=== PATIENT | female | born 2000 | race Caucasian/White ===

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

== ENCOUNTER 2019-10-18 09:00 | Outpatient (RCR) | payer OTHER, SELFPAY ==
[2018-10-25 07:34] VITALS: BMI 32.7
--- NOTE | 2019-10-18 09:03 | BH.SGPN.GN ---
Behaviors/Verbalizations/Mental Status: [] Client alert and oriented, casually dressed. Eye contact good. Motor activity appropriate. Speech within normal limits. Affect congruent, mood depressed, anxious. Thoughts linear, logical, no signs of hallucinations or delusions. Reviewed client?s symptom tracker, no risk for suicidal ideation, plan, or intent as of 10/18/19. Client Response/Progress/Benefit: [] Client first day in IOP treatment, remained attentive and willing to share with the group. Reports feeling sad and anxious today as she has been struggling with increased anxiety for the past several months. Additionally noted that in the last few months she has also lost her mother and been more isolated due to COVID-19 pandemic. Appeared to benefit from other participants normalizing these feelings for client and providing encouragement. Client noted that she would like to find ways to better manage her emotions, cope with ongoing grief, and improving ability to manage anxiety. Expressed feeling nervous but excited to begin IOP treatment and is proud of herself for taking the initiative to seek help. Will continue IOP tx to increase insight, improve mood stability, and promote healthy mental health sx management. Narrative Note: []
--- NOTE | 2019-10-18 10:16 | BH.SGPN.GN ---
Behaviors/Verbalizations/Mental Status: [] Client alert and orient. Appearance neat, casual and appropriately groomed. Speech an appropriate rate and tone. Motor activity WNL. Mood anxious and dysthymic, affect congruent. No evidence of delusion or hallucinations. Client Response/Progress/Benefit: [] Pt first day in IOP tx. She was receptive to session, participating throughout. Provided input as the group brainstormed the positive and negative aspects of stress on physical and mental health. Group worked together to define stress and pt noted that to her stress can be ?either motivating or debilitating?. Group did well to identify that the benefits of stress include: motivates us, heightened senses/focus, increased productivity, and keeps us safe. Identified personal impacts of too much stress as: decreased performance, irritability, lashing out, and isolation/avoidance. Client identified her own current stressors as finances, friendships, family, work, loneliness, her mental health, physical health, grief, fear/anxiety, and worries about a future career. Client reports that the level of her stress jar is ?overflowing? but that she is looking forward to improving her ability to cope. Recommended to continue IOP tx to improve healthy coping skill application, reduce mental health sx, and prevent decompensation. Narrative Note: []
--- NOTE | 2019-10-18 11:14 | BH.SGPN.GN ---
Behaviors/Verbalizations/Mental Status: []Client alert and oriented, neatly dressed and groomed. Eye contact good. Motor activity appropriate. Speech within normal limits. Affect unable to gather due to wearing a mask for COVID-19 protocol, mood anxious. Thoughts linear, logical, no signs of hallucinations or delusions. Client Response/Progress/Benefit: []Client engaged participant in session as evidenced by client listening attentively to others and providing input during session. Client reported when she does not manage her stress well client cries, has panic attacks, isolates, avoids, and takes it out on others. Client contributing during discussion about the 4 A's of managing stress. Client able to give different strategies for all the A's and connect it back to her life. Client wants to work on managing her stressor of working on establishing her career plan. Client reported she wants to reduce her stressor by setting small goals to help her create a more realistic plan. Client also wants to ?sort out my thoughts? by taking time to write out what she wants and steps to take. Client seemed to benefit from increased awareness of the impact of stress on mental health and increasing repertoire of stress management strategies. Will continue IOP tx to prevent decompensation, increase self-awareness, and improve daily functioning. Narrative Note: []
--- NOTE | 2019-10-18 11:23 | BH.COMM ---
Communication Note - Communication with Client Communication Note: Met with pt to complete intial paperwork. No significant chenges since pre-admission screening. Completed [place] [facility]icide Screening. Low risk. Passive suicidal thoughts and survivial ambivalence on sporadic basis. Protective factors. Future-oriented.
--- NOTE | 2019-10-19 08:54 | BH.NA ---
Physical Data - Vital Signs Pulse Rate: 64 Blood Pressure: 106/62 - Height/Weight Height: 1.55 m - stated Weight:: 83.915 kg - stated Weight in Pounds: 185.0 lbs Nutritional History - Appetite Nutritional Instructions:: If client shows signs of a swallowing problem, weight change of 10 pounds or more in the last month, or is on a diabetic diet, the physician will review and request a dietitian consult, as appropriate. All unintentional weight loss will be referred to the physician for decision on need for dietitian consult. Describe your appetite:: Fair - Client states that her appetite varies, states she stress eats at times and other times like current nothing sounds good lately. Functional Assessment - Sleep Pattern Describe any problems with sleeping: Client states that she has struggled with insomnia and it has been bad over the past 1.5years. States the insomnia is not every day but describes an average of 1 hour of sleep on those nights and on nights that she is really fatigued will get approximately 7 hours of broken sleep. - Activities Motor Activity:: Functional Sensory/Communication Assess - Vision Problems Do you have any vision problems?: None - Hearing Problems Do you have any hearing problems?: Adequate - Communication Problems Do you have difficulty understanding what people are saying?: No Do you have trouble putting your thoughts into words or expressing what you want to say?: Yes - Client states has racing thoughts and pressured speech. Medical Problems/History - Neurological Conditions Neurological: Seizures Comments:: Client states that she had one siezure two years ago and off medication x1-2years. - Gastrointestinal Conditions Gastrointestinal: Other (See comments) - Client states she has lymphocytic colitis - Family History Family History: Family History (Last Reviewed 10/25/18 @ 07:12 by Jaylin Kilgore) Other Diabetes Seizures Comments:: Client states that she has a family history of Bipolar disorder with her cousins. - Additional History Additional comments:: Client states she has a h/o PTSD, Depression, Anxiety, Panic disorder Surgical History - Surgical History Have you had any surgeries? If so, list type and date:: Yes - [place] teeth Substance Abuse - Substance Abuse Please describe substance abuse in the last 30 days:: Client denies past or current alcohol use, substance use, or tobacco use. Client states that she consumes caffiene a few times per week consisting of pop, coffee, and tea. Mental Status Summary - Mental Status Significant Findings/Observations on Appearance and Mood:: Client is alert and oriented x4. Client is casually groomed. Client cooperative during the assessment, makes fair eye contact during conversation. Client's speech with normal rate and volume, coherent and spontaneous. Client appears mildly depressed and moderately anxious during assessment. Client makes logical associations, normal processing. Client denies delusions and hallucinations, none evident. Client appears to have good insight and judgement. Suicide Assessment - Suicidal Ideation Are you currently or have you been suicidal in the past?: Yes - Past in 2015- with pills but interupted. Denies current SI/HI Suicidal Intentional Rating Scale (SIRS): Suicidal thoughts (past) - Past SI in 2015, denies current SI/HI. Physician Notification: If Active suicidal thoughts/Will not contract for safety is checked, contact physician and document in the Physician Notification section below. Past Psychiatric History - MH Treatment Hx Age of first mental health symptoms: Client states officially diagnosed with mental health at 13yo. Describe (age, circumstance, etc) any past hospitalizations: Client denies past mental health hospitalizations. Current providers for mental health treatment (counselor, psychiatrist, case finishing machine adjuster, etc.): Client denies current psychiatrist or therapist. Client states she tried seeing a psychiatrist in the past about one year ago and seen a therapist a year ago but not for very long. Fall Risk Assessment - Physical Status Physical Status: No problems - Impairments Impairments: None - Elimination Elimination: Continent AND independent - Gait or Balance Gait or Balance: Walks independently - Hx of Falls History of falls in the past 6 months: No known history - Medications/Substances Medications/substances used within the past 24 hours or ordered to administer: None of the medications/substances list above RN Summary of Impressions - Impressions Recommendations: Include psychiatric and medical issues, treatment planning recommendations, and discharge planning needs. Impressions: Psychiatric Issues: Bipolar 2 disorder, most recent episode hypomanic or mixed; generalized anxiety disorder; history of PTSD - Level of Care How do the client's current symptoms and functional deficits support need for this level of care?: Client details onset of current episode, stating her symptoms have been getting worse over the pat couple years. Client states that it has worsened over the past couple months and worse with traumatic events. Client states that her mother a couple months ago from terminal cancer. 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 Client states that she is frustrated from her mental health issues and that her friends are noticing her going from a depressed state to a up for anything state. Client states before her mother passed that her mother said she was talking loud and rapid. Client states that she feels distracted, having a hard time concentrating, anxious, panic attacks 2-3 times/week, racing thoughts, pressured speech, and at times depressed. IOP will promote gains and prevent further decompensation while providing social support and skills training.
--- NOTE | 2019-10-19 09:06 | BH.SGPN.GN ---
Behaviors/Verbalizations/Mental Status: [] Client alert and oriented, casual dress. Eye contact good. Motor activity appropriate. Speech within normal limits. Affect unable to gather due to client wearing a mask for COVID-19 protocol, mood dysthymic, agitated. Thoughts linear, logical, no signs of hallucinations or delusions. Reviewed client?s symptom tracker, no signs of suicidal ideation, plan, or intent as of today. Client Response/Progress/Benefit: [] Client responded well to session, providing feedback to peers and engaged in discussion. Client reports feeling agitated and frustrated today as she has been struggling to set boundaries with her co-workers as she feels they have been overbearing since her mom a few months ago. Client noted appreciating their concerns but feels overwhelmed when people are constantly checking-in with her. She did well to accept support from the group and noted use of self-talk and taking breaks as needed to better manage her emotions. Client did well to identify current mental health positives which include making plans to meet up with a friend and create inspirational signs she can hang around her room, as well as taking the stressor regarding her coworkers and being able to reframe it as a positive. She shared that reframing has been a very tool in challenging her perspective. Appeared to benefit from reflecting on her application of coping skills and ability to challenge negative thoughts. Will continue IOP tx to promote more consist mood stability, improve daily functioning, and reduce intensity of symptoms. Narrative Note: []
--- NOTE | 2019-10-19 09:09 | BH.SGPN.GN ---
Behaviors/Verbalizations/Mental Status: []Client alert and oriented, casual appearance. Eye contact fair. Motor activity appropriate. Speech within normal limits. Affect constricted, mood dysthymic. Thoughts linear, logical, no signs of hallucinations or delusions. Client Response/Progress/Benefit: []Pt responded well to session AEB pt openly sharing thoughts and feelings and listening attentively to others. Pt reported she is struggling because not getting sufficient amount of sleep due to insomnia. Pt stated at night she will have dumb irrational fears which make her mind race and has difficulty falling asleep. Pt reported she was able to talk myself down last night and get a few hours of sleep. Pt reported a mental health positive is starting IOP because gives her hope. Pt stated her current stressor is money because she struggles with buying things to help her feel better. Pt seemed to benefit from support from peers. Pt to continue IOP to increase health coping, challenge negative thoughts and prevent decompensation. Narrative Note: []
[2019-10-19 09:46] VITALS: BP 106/62; PULSE 64
--- NOTE | 2019-10-19 11:18 | BH.SGPN.GN ---
Behaviors/Verbalizations/Mental Status: [] Eye contact good. Motor activity is appropriate. Appearance is casual. Speech is Appropriate. Mood is anxious and depressed. Affect is congruent. Thoughts are linear and logical. No evidence of psychosis. Client Response/Progress/Benefit: [] Pt receptive of session, actively engaged in activity and group discussion. Worked with group to process the activity and connect negative forces in the task with those experienced in their own lives. Pt identified personal negative forces impacting mental health progress to include: unrealistic expectations, negative self-talk, fear of failing, lack of balance, and unregulated emotions. Group then worked together to identify common positive forces in activity and life which help us grow. Pt personal positive forces included: healthy supports, a desire to improve balance and focus more on positives, and willingness to put forth the effort. Pt was attentive during psychoeducation on the importance of utilizing many aspects of positive forces and benefited from group with increased insight on the impact of negative and positive forces on mental wellness. Identified wanting to improve positive self-talk as a stronger positive force in her life. Progress noted in self-report of improved ability to recognize unhealthy skills she would like to reduce and healthier alternatives. Pt recommended continued IOP tx to maintain stability, improve symptom management, and continue to work on healthy coping skill application. Narrative Note: []
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
--- NOTE | 2019-10-19 13:00 | BH.DR.ITP ---
Initial Treatment Plan - Patient Information Visit Information: ADMISSION DATE: EXPECTED LOS: 4-6 weeks - Problems/Symptoms Problem #1:: moods of depression, irritability and hypomania Symptom:: Sadness, restlessness, biological disruption of sleep, passive thoughts of , decreased concentration, hopelessness, worthlessness, guilt Problem #2:: Anxiety Symptom:: Rumination, worry, panic attacks
--- NOTE | 2019-10-20 10:17 | BH.SGPN.GN ---
Behaviors/Verbalizations/Mental Status: []Eye contact is good. Motor activity is appropriate. Appearance is disheveled. Speech is Appropriate. Mood is anxious, depressed. Affect is unable to gather due to wearing a mask for COIVD-19 protocol. Thoughts are linear and logical. No evidence of psychosis. Client Response/Progress/Benefit: []Client was an active participant in group discussion and activity, providing input throughout. Client worked with peers on defining what goals are. Client reported ?if you only focus on the end goal you focus on perfection, not progress.? Brainstormed with the group the benefits of goal setting which included: increased motivation, sense of accomplishment, increased confidence, growth, and purpose. Client helped group discussed the barriers that keep people from either setting goals are following through with goals. Client identified not feeling deserving of setting goals as a barrier to setting goals. Able to provide feedback during psychoeducation on SMART goals. Engaged in activity and did well to provide ideas and listen to peers. Client appeared to benefit from learning the mental health benefits of setting goals that are SMART. Will continue IOP tx to promote mood stability, prevent decompensation, and increase healthy coping skills. Narrative Note: []
--- NOTE | 2019-10-20 15:31 | BH.MDN_ITS ---
Multi-Disciplinary Note - Note 30-min Individual Time Started:: 09:45 Date: 10/20/19 Purpose of session/treatment goals addressed:: The purpose of this session was to gather information on client's current stressors, symptoms, and treatment goals. Another goal was to build rapport and provide psychoeducation. Eye Contact:: Good Motor Activity:: Appropriate Appearance:: Disheveled Speech:: Appropriate Mood:: Anxious Affect:: Congruent Thoughts:: Racing, No evidence of hallucinations/delusions noted Staff Interventions:: Therapist used active listening and open-ended questions to explore client's current stressors, symptoms, history, and treatment goals. Therapist used strengths perspective to build rapport and provide emotional support. Therapist provided psychoeducation on anxiety, bipolar, and maintainance cycles. Therapist gave client encouragement and normalized her anxiety on her first week of IOP. Client Response:: Client responded well to session, open to meeting with therapist. Client reported she has been enjoying IOP so far and looks forward to continuing her treatment. Client stated she wants to work on managing her emotions beyond medications. Client was diagnosed with bipolar disorder by [facility] psychiatrist which client reported was the first time she had been diagnosed with this. Client shared it is a relief for her because I knew something wasn't right, I just didn't know what. Client stated now that she knows what she has, client can go back and identify past symptoms. Client shared her mental health and inability to manage her mood has hurt client's friendships and family in the past. Client stated, they want to know why I'm being crazy and I didn't know. Client receptive to psychoeducation on bipolar disorder, anxiety, and maintenance cycles. Client hopes to learn more about her warning signs, triggers, and baseline emotions. Client reported she would also like to learn how to cope with her history of trauma. Client stated it is hard to tell if her erratic moods are from her trauma or bipolar disorder. Client appears motivated and willing to learn. Risks/Concerns:: Client denies any suicidal ideations, plan, or intent as of 10/21/19. Future oriented and reporting hope for treatment. Progress Toward Goals/Plan:: Client's first week of IOP, is doing well to connect with peers and engage in group sessions. Client identified her tx goals to be: reduce anxiety, get better sleep, control her emotions better, lessen the intensity of her symptoms, learn more about bipolar disorder, and cope with trauma triggers. Client currently endorses erratic mood swings, anxiety, lack of sleep, panic attacks, and increased irritability. Client reports history of brandy symptoms including grandiose ideations, racing thoughts, and lack of sleep but still having energy. Will continue IOP tx to prevent decompensation, reduce mood dysregulation, and learn healthy coping skills. Time Stopped:: 10:14
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
--- NOTE | 2019-10-20 15:50 | BH.MTP ---
[facility] - Patient Information Program Physician:: Dr. Kaitlin Ferrer Primary Therapist:: Tess Cuevas - Psychiatric Diagnoses Psychiatric Diagnoses:: Bipolar 2 disorder, most recent episode hypomanic or mixed; generalized anxiety disorder; history of PTSD Diagnosis Code(s):: F 31.81 - Estimated LOS Estimated LOS (in weeks):: 6 Problem/Goal #1 - Problem/Goal #1 Stated Goal:: Client will increase mood stability, reduce depression, and reduce isolative behaviors due to Bipolar disorder through the Intensive Outpatient Program. Description of Barriers: Client reports significant traumas throughout her life that continue to impact client. Client stated in the past she has minimized her emotions and symptoms, which later led to more problems and poorer functioning. Client's mother this year and she has been grieving this loss. Client states she is still learning about her bipolar symptoms and at times client feels like I can't trust my emotions. Client stated some of her supports do not understand mental health which makes client hesitant to share with them. Functional Impact: Client is a 19-year-old female with a history of PTSD, RAO, and Bipolar symptoms. Client had not been previously diagnosed with Bipolar, until recently. Client was self-referred to IOP due to erratic moods, panic attacks, and mental health symptoms interfering with her ability to function. Client reports extensive history of mood swings for the past year that have been worsening in intensity. Client has a history of trauma and her mother recently . Client has had several trials with SSRIs, but found that they only exacerbated client's symptoms. Client currently endorses a depressed mood, crying spells, lack of motivation, survival ambivalence, hopelessness, and anhedonia. Client's depressive episodes are followed by hypomanic episodes with impulsivity, excessive spending, feeling wired, racing thoughts, and insomnia for two days. Client also reports severe anxiety, ruminations, phobia of spiders, and constant fears about her health. Client reports her symptoms are impacting her ability to maintain relationships, work, and function at her baseline. Client stated if I don't figure out what's wrong with me I'm going to break down. Goal Relevant Strengths/Supports: Client presents as a motivated, intelligent, and kind young woman who wants to improve her mental health. Client has been through many hardships in her life, but she continues to demonstrate resilience and a positive attitude. Client is willing to learn about her symptoms and practice healthy coping skills. Client identifies her friends and father as her primary supports. 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 - Objectives Objective #1 Stated Objective: Client will learn and utilize 2-3 healthy coping strategies to better manage depressive and mood symptoms as shown by reduced DSM-5 scores. Interventions: Through group and individual sessions, therapist will help client identify triggers and warning signs of depression and emotional dysregulation including emotional, physical, and behavioral changes. Therapist will teach client various coping skills to manage her symptoms and give client tangible resources to use to regulate emotions. Therapist will use cognitive restructuring techniques and help client gain awareness of negative thoughts that reinforce depressive cycles. Therapist will help client incorporate behavioral activation and assist client in setting SMART goals. Discharge Criteria: Client will have met this goal when she can report learning and using at least 2 coping skills to manage depressive symptoms and show a reduction in DSM-5 symptoms. Target Date: 11/29/19 Review Date: 11/17/19 Status: open Objective #2 Stated Objective: Client will increase self-awareness of her bipolar disorder by identifying 2-3 warning signs and triggers to both manic and depressive episodes Interventions: Through individual and group work, therapist will help client to identify triggers and warning signs for manic and depressive episodes. Therapist will provide psychoeducation on bipolar disorder and use CBT strategies to increase client?s awareness of how thoughts, feelings, and behaviors impact functioning. Therapist will encourage client to bring in her supports for sessions as client wants to increase self-awareness and teach her supports about bipolar and how to manage the symptoms. Therapist will teach client various coping strategies to increase mood stability. Discharge Criteria: Client will have met this treatment goal when her DSM-5 symptoms reflect a reduction for brandy and depression. Additionally, client will have accomplished this goal when she can identify at least 2 warning signs and at least 2 coping strategies to increase mood stability. Target Date: 11/29/19 Review Date: 11/17/19 Status: open Problem/Goal #2 - Problem/Goal #2 Stated Goal:: Client will increase emotional regulation and reduce intensity and duration of anxiety symptoms. Description of Barriers: Client reports significant traumas throughout her life that continue to impact client. Client stated in the past she has minimized her emotions and symptoms, which later led to more problems and poorer functioning. Client's mother this year and she has been grieving this loss. Client states she is still learning about her bipolar symptoms and at times client feels like I can't trust my emotions. Client stated some of her supports do not understand mental health which makes client hesitant to share with them. Functional Impact: Client is a 19-year-old female with a history of PTSD, RAO, and Bipolar symptoms. Client had not been previously diagnosed with Bipolar, until recently. Client was self-referred to [facility] due to erratic moods, panic attacks, and mental health symptoms interfering with her ability to function. Client reports extensive history of mood swings for the past year that have been worsening in intensity. Client has a history of trauma and her mother recently . Client has had several trials with SSRIs, but found that they only exacerbated client's symptoms. Client currently endorses a depressed mood, crying spells, lack of motivation, survival ambivalence, hopelessness, and anhedonia. Client's depressive episodes are followed by hypomanic episodes with impulsivity, excessive spending, feeling wired, racing thoughts, and insomnia for two days. Client also reports severe anxiety, ruminations, phobia of spiders, and constant fears about her health. Client reports her symptoms are impacting her ability to maintain relationships, work, and function at her baseline. Client stated if I don't figure out what's wrong with me I'm going to break down. Goal Relevant Strengths/Supports: Client presents as a motivated, intelligent, and kind young woman who wants to improve her mental health. Client has been through many hardships in her life, but she continues to demonstrate resilience and a positive attitude. Client is willing to learn about her symptoms and practice healthy coping skills. Client identifies her friends and father as her primary supports. 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 - Objectives Objective #1 Stated Objective: Client will be able to explain common stress reactions and symptoms related to trauma and learn 2-3 coping skills to manage symptoms. Interventions: Therapist will provide education on trauma and explain impact trauma can have on development. Will help client explore personal symptoms and warning signs of stress and trauma. Therapist will teach client coping skills to improve emotional regulation, mindfulness, and distress tolerance. Therapist will help client get connected with additional trauma-focused services, should client agree. Discharge Criteria: Client will have met this objective when can identify common stress reactions to trauma and report using at least 2 coping skills to manage symptoms. Target Date: 11/29/19 Review Date: 11/17/19 Status: open Objective #2 Stated Objective: Client will identify 2-3 anxiety and crisis triggers and 2 calming coping skills to use when feeling anxious to reduce anxiety as shown by decreased DSM-5 cross-cutting score. Interventions: Therapist will help client increase awareness of anxiety and crisis triggers and educate client on ways anxiety impacts overall health. Therapist will teach client various calming strategies to promote emotional regulation and reduction of anxiety. Therapist will assist client in identifying warning signs and teach client techniques to reduce, remove, or accept stressors to reduce anxiety. Therapist will discuss the importance of self-care, healthy relationships, and boundaries. Discharge Criteria: Client will have accomplished this goal when can report at least 2 triggers for anxiety and state using 2 calming strategies to manage symptoms. Additionally, client will have accomplished this goal when her DSM-5 cross-cutting scores show a decrease in anxiety. Target Date: 11/29/19 Review Date: 11/17/19 Status: open
--- NOTE | 2019-10-24 09:02 | BH.SGPN.GN ---
Behaviors/Verbalizations/Mental Status: []Client alert and oriented, casual dress. Eye contact good. Motor activity appropriate. Speech within normal limits. Affect unable to gather due to client wearing a mask for COVID-19 protocol, mood dysthymic. Thoughts linear, logical, no signs of hallucinations or delusions. Reviewed client?s symptom tracker, no signs of suicidal ideation, plan, or intent as of today. Client Response/Progress/Benefit: []Client responded well to session, attentive and engaged throughout. Client reports feeling sleepy, calm, and sad today. Client stated her energy levels are lower today due to feeling tired. Client shared multiple mental health wins today. Client reported she has been following through with her game plan with is to maintain a more consistent sleep schedule. Client identified coping skills she has been using which included: opposite action, thought challenging, and self-care. Appeared to benefit from reflecting on generalization of coping skills and connecting with peers. Progress noted in client's generalization of coping skills. Will continue IOP tx to prevent decompensation, improve emotional regulation skills, and reduce intensity of symptoms. Narrative Note: []
--- NOTE | 2019-10-24 11:15 | BH.SGPN.GN ---
Behaviors/Verbalizations/Mental Status: []Client alert and oriented, casually dressed, hygiene appeared to be tended to. Eye contact good. Motor activity appropriate. Speech within normal limits. Affect unable to gather due to wearing a mask for COVID-19 protocol, mood anxious and euthymic. Thoughts linear, logical, no signs of hallucinations or delusions Client Response/Progress/Benefit: []Client receptive of session, engaged and positively contributing. Participated in group discussion on the various areas of self-care, benefits, and types of self-care activities for each area. Client completed self-assessment activity on her own utilization of the different areas of self-care and was able to identify current practices she actively practices and areas she can improve upon. Client reported she can improve social, spiritual, and psychological self-care. Client stated she wants to work on practicing disconnecting from technology, looking at inspirational quotes for encouragement, and making more time for friends and family as she has a hx of isolating. Client appeared to benefit from increasing awareness of how she can improve self-care balance. Progress noted as client has been able to increase insight and application of healthy coping skills for better managing her mood. Will continue IOP tx to decrease negative thoughts, increased symptom management, and improve mood stability. Narrative Note: []
--- NOTE | 2019-10-26 10:25 | BH.SGPN.GN ---
Behaviors/Verbalizations/Mental Status: []Client alert and oriented, casually dressed and groomed. Eye contact good. Motor activity appropriate. Speech within normal limits. Affect unable to gather due to wearing a mask for COVID-19 protocol, mood anxious. Thoughts linear, logical, no signs of hallucinations or delusions. Client Response/Progress/Benefit: []Client was an engaged participant throughout group session AEB client contributing to discussion of healthy versus unhealthy coping skills. Client reported ?it?s not the situation we are in, it?s how we handle it that matters.? Client defined coping skills as ?things we do to help us deal with what?s happening.? Group identified unhealthy coping skills which included; avoidance, isolation, drugs and alcohol, denial, and taking emotions out on others. Group reported people turn to unhealthy skills because of habit and learned behaviors. Client agreed that learning healthy coping skills takes self-awareness and practice. Participated in the activity and discussed the importance of creating a strong foundation of healthy coping skills in order to manage life stressors. Client seemed to benefit from increased awareness of importance of increasing healthy coping skills and consequences of utilizing unhealthy coping skills. Client will continue IOP tx to reduce mood instability, improve daily functioning, and increase healthy coping skills. Narrative Note: []
--- NOTE | 2019-10-26 14:48 | BH.MDN ---
Multi-Disciplinary Note - Note 45-min Individual Time Started:: 11:23 Date: 10/26/19 Purpose of session/treatment goals addressed:: The purpose of this session was to address current stressors, symptoms, and triggers. Another goal was to practice calming strategies and provide psychoeducation on anxiety. Other topics included distress tolerance. Eye Contact:: Good Motor Activity:: Appropriate Appearance:: Casual Speech:: Appropriate Mood:: Anxious Affect:: Congruent Thoughts:: Linear, Logical, No evidence of hallucinations/delusions noted Staff Interventions:: Therapist used active listening and open-ended questions to explore client's current symptoms, stressors, and triggers. Therapist provided psychoeducation on anxiety and ERP to come with phobias. Therapist explored coping skills that have helped client in the past and taught client different mindfulness skills. Therapist helped client identify self-soothing coping skills and positive self-talk statements. Therapist gave client homework to practice distress tolerance. Client Response:: Client responded well to session, open to meeting with therapist. Client shared that she has been really struggling with her phobia of spiders lately. Client stated she saw a spider yesterday which really triggered client's anxiety and resulted in a panic attack. Client shared her phobia is not a joke and stated she will avoid rooms in her house for days if she sees a spider in there. Receptive to discussion of coping skills that have helped client in the past. Client identified deep breathing and thought challenging as helpful. Client receptive to practicing distress tolerance skills and willing to close her eyes for three seconds and breathe deeply when she sees a spider in the future. Client recognizes the benefits of facing her fears rather than avoid them. Client also practiced progressive muscle relaxation in session and reported it to be helpful. Client wrote out positive self-talk statements to help client soothe herself during anxious situations. Risks/Concerns:: Client denies any suicidal ideations, plan, or intent as of 10/26/19 Progress Toward Goals/Plan:: Client's second week of IOP, is doing well to connect with peers and engage in group sessions. Client shared she has been trying to implement the coping skills she learns in group at home. Client reported she is currently struggling with her fear of spiders. Client reports engaging in avoidance behaviors and panic attacks when she sees spiders. Client currently endorses erratic mood swings, anxiety, lack of sleep, panic attacks, and increased irritability. Client also reports avoidance behaviors, inability to concentrate, and isolative behaviors. Will continue IOP tx to prevent decompensation, reduce mood dysregulation, and learn healthy coping skills. Time Stopped:: 12:10
--- NOTE | 2019-10-27 09:03 | BH.SGPN.GN ---
Behaviors/Verbalizations/Mental Status: []Client alert and oriented, neatly dressed and groomed. Eye contact good. Motor activity appropriate. Speech within normal limits. Affect unable to gather due to wearing a mask for COVID-19 protocol, mood euthymic/ energetic. Thoughts linear, logical, no signs of hallucinations or delusions. Reviewed client?s symptom tracker, no risk for suicidal ideation, plan, or intent as of 10/27/19. Client Response/Progress/Benefit: []Client responded well to session, providing supportive statements to peers. Client reports feeling hyper and agitated today due to stressors occurring with her father. Client shared she is also stressed because she is scheduled to work our days straight. Client receptive to creating a coping skills plan for work with individual therapist. Client identified multiple mental health wins today which included: using opposite action this morning, using calming coping skills when client saw a spider, and creating positive affirmations with a friend. Client shared she has been trying to use healthier emotional regulation skills, especially when she and her dad are having an argument. Appeared to benefit from reflecting on generalization of coping skills. Progress noted in client's application of coping skills. Will continue IOP tx to prevent decompensation, improve mood stability, and increase the use of healthy coping skills. Narrative Note: []
--- NOTE | 2019-10-27 11:20 | BH.SGPN.GN ---
Behaviors/Verbalizations/Mental Status: [] Client alert and oriented, casual in appearance. Eye contact good. Motor activity appropriate. Speech within normal limits. Affect congruent, mood euthymic, anxious. Thoughts linear, logical, no signs of hallucinations or delusions. Client Response/Progress/Benefit: []Pt active participant and providing input throughout. Appeared to connect with the discussion reviewing three categories of skills for managing anxiety which included mind-based, body-based, and self-soothing. She worked with the group to provide examples throughout and contributed ideas. Pt described to the group what the 5-senses mindfulness tool is, indicating that this is a skill she has used in the past to help with managing her own anxiety. Pt did well to identify a skill in each mindfulness category she is willing to practice. Identified skills included: body-based: progressive muscle relaxation, Self-soothing as: coloring and aromatherapy, and mind-based: guided imagery. Pt seemed to benefit from increased awareness of healthy skills to manage anxiety related symptoms and in identifying skills willing to practice outside treatment environment. Progress noted with increased engagement and reported use of positive self-talk to improve ability to challenge anxious thoughts. Client to continue IOP level of care to increase healthy coping skills, continue to promote anxiety and depression management skills, and prevent decompensation. Narrative Note: []
--- NOTE | 2019-11-01 09:00 | BH.SGPN.GN ---
Behaviors/Verbalizations/Mental Status: []Client alert and oriented, casually dressed and groomed. Eye contact good. Motor activity appropriate. Speech within normal limits. Affect unable to gather due to wearing a mask for COVID-19 protocol, mood anxious. Thoughts linear, logical, no signs of hallucinations or delusions. Reviewed client?s symptom tracker, no risk for suicidal ideation, plan, or intent as of 11/01/19. Client Response/Progress/Benefit: []Client responded well to session, receptive to feedback from peers on dealing with hypomania. Client reports feeling anxious today due to experiencing hypomania over the weekend. Client shared she had a lot of energy, was talking rapidly, and was getting a lot done. Client reported that she used a lot of healthy coping skills this weekend though to manage her mood. Client identified using: self-care, talked to friends, cleaned her room, and walked away from an argument. Client stated, I did a lot of good this weekend, but the bad outweighs the good. Client able to identify self-care strategies that could be helpful today. Appeared to benefit from receiving emotional support from group and reflecting on application of coping skills. Will continue IOP tx to prevent decompensation of mood symptoms, increase use of healthy coping skills, and improve daily functioning. Narrative Note: []
--- NOTE | 2019-11-01 11:16 | BH.SGPN.GN ---
Behaviors/Verbalizations/Mental Status: []Client alert and oriented, casually dressed and groomed. Eye contact good. Motor activity appropriate. Speech within normal limits. Affect congruent, though difficult to assess as pt wearing a mask due to COVID-19 hospital protocol, mood anxious. Thoughts linear, logical, no signs of hallucinations or delusions. Client Response/Progress/Benefit: []Client an active participant AEB contributing to discussion and taking notes throughout. Client participated in group discussion about the different types of support and benefits different types of support can provide. She gave examples regarding personal and professional supports. Client identified she would like to increase social support in the area of self-help supports by researching what mental health support groups are available and contacting them about participation. Client shared this will help improve self-confidence by reducing negative thoughts or feelings of being the only one currently struggling in these areas. Client seemed to benefit from identifying a type of support she would like to improve upon and brainstorming small steps to take in order to successfully do so. Progress noted as shown by client's increased insight regarding skills that will improve ability to cope with mental health sx. Client to continue IOP tx to reduce anxiety, improve healthy coping skills, and increase mood stability. Narrative Note: []
== END 2019-11-01 23:59 ==
LOC: BHIOP 09:00
PROVIDERS: PCP Nurse Practitioner Family; Referring Provider Psychiatry & Neurology Psychiatry; Visit Provider Psychiatry & Neurology Psychiatry
DX: F31.81 Bipolar II disorder (principal); F41.1 Generalized anxiety disorder; F43.10 Post-traumatic stress disorder, unspecified; E66.3 Overweight; Z62.811 Personal history of psychological abuse in childhood; Z62.810 Personal history of physical and sexual abuse in childhood
CPT/HCPCS: H0035; 90832; 90834; 90853

== ENCOUNTER 2019-11-02 09:00 | Outpatient (RCR) | payer OTHER, SELFPAY ==
[2018-10-25 07:34] VITALS: BMI 32.7
[2019-11-02 00:37] VITALS: BP 106/62; PULSE 64
--- NOTE | 2019-11-02 10:22 | BH.SGPN.GN ---
Behaviors/Verbalizations/Mental Status: []Client alert and oriented, disheveled appearance. Eye contact good. Motor activity appropriate. Speech within normal limits. Affect unable to gather due to wearing a mask for COVID-19 protocol, mood anxious-tearful at times. Thoughts linear, logical, no signs of hallucinations or delusions. Client Response/Progress/Benefit: []Client responded well to session, attentive and contributing to discussion. Client commented on the quote and shared ?you don?t want your illness to blur the lines of your strengths.? Client worked cooperatively with the group to identify factors that contributed to how we define ourselves which included: upbringing, societal expectations, our abilities, accomplishments, failures, education, and how others view us. Client reported she has experienced the impacts of mental health stigma and became tearful sharing, ?this stuff is hard for me.? Client worked with group to identify that stigma can keep people from: connecting with others, being open with others, going after a job or goals, and asking for help. Client seemed to benefit from increased awareness of how mental health stigma can impact progress. Client to continue IOP tx prevent decompensation, improve mood stability and use of healthy coping skills, and improve daily functioning. Narrative Note: []
--- NOTE | 2019-11-02 11:18 | BH.SGPN.GN ---
Behaviors/Verbalizations/Mental Status: []Pt eye contact good, casually dressed, motor activity appropriate, speech normal rate and tone. mood euthymic. Affect could not be assessed due to patient wearing a mask because of COVID-19 precautions. thoughts linear and intact, no evidence of delusions or hallucinations. Client Response/Progress/Benefit: []Client responded well to session AEB listening and taking notes, as well as providing input throughout session. Engaged in activity about facts and statistics of mental illness. Group connected with the mental health statistics, recognizing the prevalence of mental health. Group brainstormed strategies to combat social and perceived stigma which included: educating others and themselves, no longer using negative language about mental illness, being open about mental health and not using deflection like humor or joking to minimize symptoms. Client stated she would benefit from educating family about mental health and being honest with supports when she is struggling in order to reduce social and perceived mental health stigma. Appeared to benefit from increasing awareness of strategies to combat stigma. Will continue IOP tx to improve consistent application of coping skills, challenge distorted thoughts and prevent decompensation. Narrative Note: []
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
--- NOTE | 2019-11-03 10:19 | BH.SGPN.GN ---
Behaviors/Verbalizations/Mental Status: []Client alert and orient. Appearance casual and appropriately groomed. Speech an appropriate rate and tone. Motor activity WNL. Mood anxious and euthymic, affect unable to gather due to client wearing a mask for COVID-19 protocol. No evidence of delusion or hallucinations.? Client Response/Progress/Benefit: []Client responded well to session, attentive and contributing to discussion. Group discussed benefits of healthy communications on mental health which included: getting help, better relationships, less misinterpretations, and improved emotional regulation. Group additionally discussed potential barriers to communication including: shutting down, tone of voice, assumptions, yelling, passive aggressive behaviors, and poor emotional regulation. Client stated ?a lot of times we think we are communicating, but we aren?t? people aren?t mind-readers.? Attentive during psychoeducation on the four communication styles. Client self-reports identifying most with the passive and passive-aggressive communication styles. Client shared she is passive and passive-aggressive because she does not want to hurt others, but then client needs an emotional release. Client stated her family communicates very aggressively and that client wants to be assertive. Progress noted in increased insight into personal communication styles and barriers. Client to continue in IOP tx further improve mood stability, decrease emotional dysregulation, and increase the use of healthy coping skills. Narrative Note: []
--- NOTE | 2019-11-03 14:41 | BH.MDN ---
Multi-Disciplinary Note - Note 60-min Individual Time Started:: 11:40 Date: 11/03/19 Purpose of session/treatment goals addressed:: The purpose of this session was to address current symptoms, stressors, and warning signs. Another goal was to create a plan for the weekend to help client cope. Eye Contact:: Good Motor Activity:: Appropriate Appearance:: Casual Speech:: Rapid Mood:: Anxious Affect:: Congruent Thoughts:: Racing, No evidence of hallucinations/delusions noted Staff Interventions:: Therapist used active listening and open-ended ended questions to explore client's current stressors, symptoms, and warning signs. Therapist used a worksheet from the Bipolar Workbook to help client create a coping skill plan for the weekend. Therapist explored healthy versus unhealthy coping skills with client. Therapist helped client recognize when she needs to set boundaries with herself and others. Client Response:: Client responded well to session, open to meeting with therapist. Client and therapist had a session yesterday, but client was feeling increased anxiety this morning due to fear that she will be hypomanic this weekend. Client reported she is worried because client was hypomanic last weekend and she feels irritable. Client does not believe she has any other symptoms of hypomania. Receptive to creating a coping skill plan for the weekend. Client works every day this weekend and she fears this will harm her mental health. Discussed the pros and cons of communicating with her boss to have a day off. Client shared ?I don?t want to let people down.? Client able to challenge this thought and recognize that if she does not take time for herself client will not be able to function at her baseline at work. Worked on her coping skills plan and identified unhealthy behaviors to avoid. Client?s coping skills included: positive self-talk before work, listening to music, taking breaks at work every hour, and taking time after work to decompress. Client also recognized it would be beneficial to talk to her boss to advocate for herself. Risks/Concerns:: Client denies any suicidal ideations, plan, or intent as of 11/03/19. Progress Toward Goals/Plan:: Client has been responding well to treatment AEB her engagement in group and individual sessions. Client reported feeling anxious about this upcoming weekend because last weekend client was hypomanic. Client states she feels better after creating a coping skills plan. Client continues to endorse mood instability, anxiety on a daily basis, irritability, difficulty concentrating, crying spells, and sleep issues. Will continue IOP tx to promote mood stability, improve emotional regulation skills, and increase use of healthy coping skills. Time Stopped:: 12:34
--- NOTE | 2019-11-04 09:00 | BH.SGPN.GN ---
Behaviors/Verbalizations/Mental Status: [] Client alert and oriented, casual dress. Eye contact good. Motor activity appropriate. Speech somewhat more pressured than baseline, reports feeling hypomanic today. Affect unable to gather due to client wearing a mask for COVID-19 protocol, mood euthymic and anxious. Thoughts linear, logical, slight evidence of racing in nature, no signs of hallucinations or delusions. Reviewed client?s symptom tracker, no signs of suicidal ideation, plan, or intent as of today. Client Response/Progress/Benefit: [] Pt responded well to session, providing feedback to peers and actively engaged throughout. Reports feeling nervous today as she has been struggling with managing her symptoms of hypomania over the past several days. Stated experiencing increased speech and high energy while at work, however did well to take breaks and use deep breathing to keep from escalating. Inquired how others in the group manage their own symptoms and was receptive of feedback provided. Pt indicated that overall she had a positive weekend and was able to identify several mental health wins as a result. Identified talking with her dad about her mental health which was a positive experience and found he was supportive. Additional win noted as giving herself space to grieve with her father as well. Progress noted in pt increased application of skills learned, as well as improved communication with supports. Will continue IOP tx to promote more consist mood stability, improve daily functioning, and reduce intensity of symptoms. Narrative Note: []
--- NOTE | 2019-11-09 09:03 | BH.SGPN.GN ---
Behaviors/Verbalizations/Mental Status: []Client alert and oriented, casual dress. Eye contact good. Motor activity appropriate. Speech within normal limits. Affect unable to gather due to wearing a mask for COVID protocol, mood anxious and euthymic. Thoughts linear, logical, no signs of hallucinations or delusions. Reviewed client?s symptom tracker, no signs of suicidal ideation, plan, or intent as of today. Client Response/Progress/Benefit: []Client responded well to session, providing support to peers. Client reports feeling anxious and agitated today. Client shared she had an overall good weekend, but she is feeling all kinds of emotions about her mother's upcoming . Client stated she wants it to be a day of celebrating her mother, but client is worried that family conflict will happen. Receptive to feedback on how to prepare for this stressful event and boundary setting. Client's mental health wins today included: spending time with friends and family this weekend, sharing a song on social media to break mental health stigma, and improved relationships. Client stated her friendships have improved since starting IOP because client is managing her emotions better. Appeared to benefit from connecting with others and reflecting on positives. Will continue IOP tx to promote mood stability, cope with stressful events, and improve daily functioning. Narrative Note: []
--- NOTE | 2019-11-09 11:19 | BH.SGPN.GN ---
Behaviors/Verbalizations/Mental Status: [] Client alert and oriented, casually dressed and groomed. Eye contact good. Motor activity appropriate. Speech within normal limits. Affect unable to gather due to client wearing a mask for COVID-19 protocol. mood anxious and euthymic. Thoughts linear, logical, no signs of hallucinations or delusions. Client Response/Progress/Benefit: [] Pt was engaged throughout AEB providing input and taking notes during discussion. Pt helped the group identify internal consequences of ignoring or not managing stressors resulting in anger. Personal consequences identified as relationship tension, increased anxiety, and isolation. Pt brainstormed with group healthy coping skills for better managing anger which included: deep breathing, music, exercise, taking breaks, and talking to a healthy support. Pt selected writing music and journaling as the skills pt wants to incorporate this week to manage anger. Pt was also interested in walking and meditation to manage anger. Pt appeared to benefit from identifying different techniques to manage anger as well as gaining awareness of warning signs. Progress noted in pt self-report of reduced mental health sx and increased insight into barriers preventing progress in the past. Pt to continue IOP tx to prevent decompensation, improve management of mood symptoms, and prevent decompensation. Narrative Note: []
--- NOTE | 2019-11-10 09:05 | BH.SGPN.GN ---
Behaviors/Verbalizations/Mental Status: [] Eye contact is good. Motor activity is appropriate. Appearance is casual. Speech is Appropriate. Mood is depressed. Affect is flat. Thoughts are linear and logical. No evidence of psychosis. Reviewed daily check in sheet and no reports of suicidal ideations or intent. Client Response/Progress/Benefit: [] Pt was an active participant in group discussion. Emotion for today is anxious. Shared that is has been 3 months since her mother had passed and this weekend in the . Delay due to COVID. Pt reports anxiety about the services and her family. Notes that her family can often have significant arguments at family events (especially if alcohol is present). She is fearful that the day will be ruined. 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 Focus on what she wants to achieve from that day. Notes that since starting IOP she feels much better. Has been letting her support in more frequently. Not isolating. Reports increase insight and awareness of her mood and her Bipolar diagnosis. Progress noted per pt report. Benefited from group support, encouragement, and feedback. Will continue in IOP to maintain gains, prevent decompensation, and show consistent mood stability. Narrative Note: []
--- NOTE | 2019-11-10 10:10 | BH.SGPN.GN ---
Behaviors/Verbalizations/Mental Status: [] Client alert and oriented, casually dressed and appropriately groomed. Eye contact good. Motor activity appropriate. Speech WNL. Affect congruent, mood euthymic, anxious. Thoughts linear, logical, no signs of hallucinations or delusions. Client Response/Progress/Benefit: []Client attentive and providing input throughout. Contributed during discussion on the quote and shared that ?our thoughts have the ability to talk us into or out or situations? which can lead to positivity or ?what if? thoughts. Connected with the discussion about how distorted thought patterns can reinforce mental health symptoms and negatively impact self-esteem and personal relationships. Client engaged throughout the discussion on different types of thought distortions and noted that she connects with all or nothing thinking, predicting the future, mental filter, and mind-reading. Provided an example of recently struggling with the thought ?If I don?t look like that, then why bother?? in regard to her appearance and identified this as all or nothing thinking. Appeared to benefit from increasing awareness of cognitive distortions and how they can impact emotions and behaviors. Progress noted in client increased application of communication skills, positive self-talk, and self-reports of improved mood. Will continue IOP tx to prevent decompensation, improve healthy skill application, and increase mood stability. Narrative Note: []
--- NOTE | 2019-11-10 11:12 | BH.SGPN.GN ---
Behaviors/Verbalizations/Mental Status: []Client alert and oriented, casually dressed and groomed. Eye contact good. Motor activity appropriate. Speech within normal limits. Affect unable to gather due to wearing a mask for COVID-19 protocol, mood euthymic and anxious. Thoughts linear, logical, no signs of hallucinations or delusions. Client Response/Progress/Benefit: []Client active participant as evidenced by client providing input throughout session, taking notes, and completed worksheet. Client engaged in discussion about discussing additional cognitive distortions. Client shared examples of distorted thoughts she has had such as I feel annoying so I must be annoying to others.? Client shared she often struggles with emotional reasoning and disqualifying the positives. Client engaged in discussion about how to reframe distorted thoughts to a more rational statement. Client participated in the group activity of practicing thought challenging. Client and her small group successfully challenge two negative thoughts and reframed them using the strategies discussed. Client selected the strategy of catching absolute statements and telling herself ?thoughts are thoughts not facts? to help client challenge negative thinking. Client seemed to benefit from practicing identifying and reframing distorted thoughts. Client to continue IOP level of care to increase healthy coping, improve mood stability, and reduce negative thinking patterns. Narrative Note: []
--- NOTE | 2019-11-10 14:15 | BH.MDN ---
Multi-Disciplinary Note - Note 60-min Individual Time Started:: 12:07 Date: 11/10/19 Purpose of session/treatment goals addressed:: The purpose of this session was to address current symptoms, stressors, and triggers. Another goal was to challenge cognitive distortions and discuss coping skill plan for this weekend. Other topics included aftercare options and boundaries. Eye Contact:: Good Motor Activity:: Appropriate Appearance:: Casual Speech:: Appropriate Mood:: Anxious Affect:: Congruent Thoughts:: Linear, Logical, No evidence of hallucinations/delusions noted Staff Interventions:: Therapist used active listening and open-ended questions to explore client?s current symptoms, triggers, and application of coping skills. Therapist used strengths perspective to empower client on her use of emotional regulation skills yesterday. Therapist further discussed today?s group today (distortions) with client and helped client catch and challenge negative thought patterns. Therapist helped client identify coping skills, self-care strategies, and boundaries client can use this weekend. Therapist provided psychoeducation on typical development, cognitive dissonance, and values. Therapist gave client a handout on personal values for homework. Therapist gave client options for aftercare. Client Response:: Client responded well to session, open to meeting with therapist. Client shared she was glad today?s group topic was cognitive distortions because client recognizes she has ?a lot of negative thoughts.? Client stated group helped client identify her negative thinking patterns and learn how to begin to challenge them. Client shared she often has negative thoughts about her future and career. Client stated this causes her to feel lost and anxious that client is not doing enough. Receptive to thought challenging from therapist. Client shared part of the reason she feels lost is because client is unsure what she truly values and enjoys. Client stated she has the negative thought ?I don?t have a personality? because client changes her mind and sometimes does not want to do things her friends want to do. Client shared she feels hurt at times because her friends have told client ?you never want to do anything.? Able to challenge this thought and receptive to psychoeducation on development. Client recognized that is normal for a young adult to change their mind and not have their future planned out, especially when faced with numerous adverse experiences. Client connected with cognitive dissonance and wanted to explore her interests and values for homework. Client also willing to discuss a plan for the weekend to help client cope with her mother?s . Client shared ?I?m reminding myself that it is okay to have emotions that day?I don?t have to be strong.? Client discussed self-care strategies, boundary setting, and other coping skills he can use this weekend. Client receptive to discussion of aftercare options and willing to begin grief counseling. Risks/Concerns:: Client denies any suicidal ideations, plan, or intent as of 11/10/19. Future oriented and hopeful about her progress. Progress Toward Goals/Plan:: Client has been responding well to treatment AEB her engagement in group and individual sessions. Client has significant stressor occurring in her life right now, such as her mother?s this weekend, but client has been practicing healthy coping skills to manage her emotions. Client reported she plans to use self-care and boundary setting this weekend. Client states she continues to struggle with feeling ?lost? about her future and self. Client continues to endorse mood instability, anxiety on a daily basis, crying spells, cognitive distortions, and sleep issues. Will continue IOP tx to promote mood stability, reduce intensity and duration of anxiety and mood symptoms, and improve daily functioning. Time Stopped:: 13:00
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
--- NOTE | 2019-11-11 11:05 | BH.SGPN.GN ---
This psychotherapy group was provided via telehealth using two-way, real-time interactive telecommunication technology between the patients and the provider. The interactive telecommunication technology included audio and video. The patient was offered telemedicine as an option for care delivery during the COVID-19 pandemic and consented to this option. Behaviors/Verbalizations/Mental Status: [] Client alert and oriented, casually dressed. Eye contact good. Motor activity appropriate. Speech within normal limits. Affect congruent, mood anxious and euthymic. Thoughts linear, logical, no signs of hallucinations or delusions. Client Response/Progress/Benefit: [] Client responded well to session, contributing to discussion and able to make connections during activity. Client was additionally attentive during psychoeducation on the boundary setting styles and shared belief she uses ?a mix of all? boundary setting styles. Client stated she can maintain healthy boundaries when her mental health is in a good place. However, expressed struggling to do so if in a bad mood or potentially triggering environment. Reported wanting to work on challenging herself to communicate her needs more with supports and actively check-in with herself regarding her own boundary needs. Progress noted in client?s report of reduced mental health sx and improved skill application, specifically when responding to supports. Will continue IOP tx to promote use of healthy coping skills, maintain mood stability, and improve functioning. Narrative Note: []
--- NOTE | 2019-11-14 09:00 | BH.SGPN.GN ---
Behaviors/Verbalizations/Mental Status: []Client alert and oriented, casually dressed and groomed. Eye contact good. Motor activity appropriate. Speech WNL. Affect unable to gather due to wearing a mask for COVID protocol. Mood dysthymic. Thoughts linear, no signs of hallucinations or delusions. Reviewed client's daily symptom tracker, no risk noted for suicidal ideations or intent. Client Response/Progress/Benefit: []Client responded well to session, attentive and receptive to supportive statements. Client reports feeling tired and numb today. Client's mother's was this past weekend which was a significant stressor for client. Client reported she was able to stick with the boundaries she set for herself and that her family was respectful of the boundaries. Client shared the after alliance party went well, there was no fighting. Client shared she also took her medications on time this weekend, practiced self-care, and stuck to her sleep schedule. Client reported she is planning to move in with a friend which client hopes will be positive for her mental health. Client shared belief that being in her childhood home without client's mother reinforces depression. Appeared to benefit from reflecting on resilience traits. Will continue IOP tx to promote the use of healthy coping skills, further decrease intensity of symptoms, and establish aftercare. Narrative Note: []
--- NOTE | 2019-11-14 10:12 | BH.SGPN.GN ---
Behaviors/Verbalizations/Mental Status: []Client alert and oriented, casually dressed. Eye contact fair. Motor activity appropriate. Speech within normal limits. Affect could not be assessed due to pt wearing a mask as a precaution during the Covid-19 pandemic. Mood dysthymic. Thoughts linear, logical, no signs of hallucinations or delusions. Client Response/Progress/Benefit: []Pt receptive to session, listening attentively to others and providing input throughout discussion. Appeared to listen as the group brainstormed the positive and negative aspects of stress on physical and mental health. Group worked together to define stress and provided input during discussion about eustress vs distress. Client identified her stressors include: money, family issues, work, not knowing what career she wants, mental health, and grief. Client states when she is overwhelmed with stress she will have a panic attack, isolate, or lash out at others. Seemed to benefit from increased awareness of her current stressors and impact of too much stress on the mind and body. Recommended to continue IOP tx to continue use of healthy skill application, challenge distorted thoughts, and prevent decompensation. Narrative Note: []
--- NOTE | 2019-11-14 11:21 | BH.SGPN.GN ---
Behaviors/Verbalizations/Mental Status: []Client alert and oriented, casually dressed and groomed. Eye contact good. Motor activity appropriate. Speech within normal limits. Affect unable to gather due to wearing a mask for COVID-19 protocol, mood euthymic, anxious. Thoughts linear, logical, no signs of hallucinations or delusions. Client Response/Progress/Benefit: [] Pt engaged in session as evidenced by listening attentively to others and providing some input throughout, though remaining more passive than in prior groups. Pt reported when she does not manage her stress well she becomes overwhelmed and often ends up isolating or avoiding as a result. Pt contributed during discussion about the 4 A's and was able to give different strategies, provide support to fellow participants, as well as connect back to her life. Pt reports wanting to work on managing her stressors of finances and family tension by avoiding feeding into negative thoughts and adapting a more positive mindset. Shared this will help remind her of different ways to look at potentially stressful situations. Pt seemed to benefit from increased awareness of the impact of stress on mental health and increasing repertoire of stress management strategies. Will continue IOP tx to promote use of healthy coping skills, continue to reduce negative thinking, and improve mood stability. Narrative Note: []
--- NOTE | 2019-11-15 09:05 | BH.SGPN.GN ---
Behaviors/Verbalizations/Mental Status: [] Eye contact is good. Motor activity is appropriate. Appearance is casual. Speech is Appropriate. Mood is anxious. Affect is congruent. Thoughts are linear and logical. No evidence of psychosis. Reviewed daily check in sheet and no reports of suicidal ideations or intent. Client Response/Progress/Benefit: [] Pt was an active participant in group discussion. Shared with the group that she is thinking about moving out and living with her fiends. She is anxious about telling her dad. This is stressful for her. She reports that she continues to be productive and practice self-care. Talked about her tendency to obsess over things when hypomanic. Unclear if she is hypomanic and she denies. Sleep is stable and her speech is appropriate. In talking she is very anxious about this move and admits to ruminating on it extensively. Group provided some feedback, support, and encouragement. Normalized her anxiety regarding moving out of house. Minimal progress noted due to increase in anxiety and rumination however pt reports I'm handling this better now than I would have 2 months ago. Looking forward to moving out. Will continue in IOP to prevent decompensation, stabilize mood, and increase coping skills. Narrative Note: []
--- NOTE | 2019-11-15 10:15 | BH.SGPN.GN ---
Behaviors/Verbalizations/Mental Status: []Client alert and oriented, casual dress, hygiene tended to. Eye contact good. Motor activity appropriate. Speech within normal limits. Affect unable to gather due to client wearing a mask for COVID protocol, mood anxious. Thoughts linear, logical, no signs of hallucinations or delusions. Client Response/Progress/Benefit: []Client responded well to session, attentive throughout. Listened and participated throughout group discussion defining conflict and the differences between internal and external conflict. Group reported the benefits of addressing conflict as well as identified and discussed consequences of not addressing conflict. Client attentive and contributing during psychoeducation of the different conflict resolution styles. Client reports her approach to conflict ?kind of depends on the person and situation.? 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 However, client reported in her daily life she tends to be more accommodating and avoiding. Client shared this impacts client because ?I feel invalidated and lost because I?m a people pleaser.? Progress noted in client?s report of applying healthy coping skills and improved relationships. Will continue IOP tx to promote further mood stability, reduce negative thinking, and improve daily functioning. Narrative Note: []
--- NOTE | 2019-11-15 11:17 | BH.SGPN.GN ---
Behaviors/Verbalizations/Mental Status: [] Client alert and oriented, casually dressed and groomed. Eye contact good. Motor activity appropriate. Speech within normal limits. Affect unable to gather due to wearing a mask for COVID-19 protocol, mood anxious, euthymic. Thoughts linear, logical, no signs of hallucinations or delusions. Client Response/Progress/Benefit: [] Pt engaged in session AEB listening attentively to others and providing input throughout discussion on conflict. Pt did well to engage during the activity in which participants were challenged to eliminate various items through group census. Pt willing to use problem-solving skills to collaborate with her group and complete the task at hand and ensure her voice was heard. Actively contributing during processing discussion identifying conflict resolution skills used to complete the task, as well as additional skills for better managing conflict in daily life. Pt shared that awareness of one?s own barriers and willingness to work on addressing them was a factor contributing to group?s ability to succeed. Appeared to benefit from psychoeducation regarding impact of conflict on mental health and relationships and working with group to identify healthy skills for conflict resolution. Pt expressed that she has struggled with avoidance and accommodating which has led to agreeing to do things she does not want to in the past. Indicated wanting to focus on improving her ability to see things from the other person?s perspective as a conflict resolution skill she could use this week. Progress noted as pt continues to report reduced depression and improved ability to communicate with supports. Will continue IOP tx to promote use of healthy coping skills, continue to mental health symptoms, and improve mood stability. Narrative Note: []
--- NOTE | 2019-11-16 09:00 | BH.SGPN.GN ---
Behaviors/Verbalizations/Mental Status: []Client alert and oriented, casual dress, hygiene tended to. Eye contact good. Motor activity appropriate. Speech within normal limits. Affect could not be assessed due to pt wearing a face mask as precaution against coronavirus. mood anxious. Thoughts linear, logical, no signs of hallucinations or delusions. Reviewed client?s symptom tracker, pt denies current suicidal thoughts or intention to date. Client Response/Progress/Benefit: []Pt was an active participant in group discussion, providing input and openly processing thoughts and emotions with the group. Pt stated she has been working on her gameplan of setting boundaries with others and putting her needs first. Pt stated although it has been difficult she has made the choice to move out of her home. Pt reported she has guilt about leaving her dad alone, but recognizes the home environment isn't fully healthy for her. Pt stated she knows she needs to do what is healthy for her, even if it's really challenging. Pt stated another mental health positive is applying for jobs. Pt reported her stressor is needing to tell her dad her decision move out. Pt shared she doesn't want to make him sad, but can't be in charge of having to take care of him. Progress noted with pt starting to make decisions that she thinks are best for her mental health. Pt to continue IOP to continue use of healthy coping skills, challenge distorted thoughts and prevent decompensation. Narrative Note: []
--- NOTE | 2019-11-16 10:08 | BH.SGPN.GN ---
Behaviors/Verbalizations/Mental Status: []Client alert and oriented, casual appearance. Eye contact good. Motor activity appropriate. Speech within normal limits. Affect unable to gather due to wearing a mask for COVID, mood anxious. Thoughts linear, logical, no signs of hallucinations or delusions. Client Response/Progress/Benefit: []Client responded well to session, contributing to discussion and engaged during the activity. Attentive during discussion on the quote. Group identified benefits to change included: improved mental health, independence, clearer thinking, and getting out of unhealthy situations. Worked with the group to identify barriers to change, which included: guilt, sense of obligation to others, discomfort, fear of the unknown, and negative thinking. Client reported ?I?ve feared setting boundaries because I don?t want to ruin relationships.? Client participated along with group in activity where they identified and discussed the emotions related to change. Client she often experiences fear and anxiety when she thinks about change. Client reported she gets worried thoughts which have caused client to back out of positive changes in the past. Benefited from increased awareness and understanding of emotions, benefits, and barriers related to change. Will continue IOP tx promote mood stability, increase use of healthy coping skills, and improve daily functioning. Narrative Note: []
--- NOTE | 2019-11-16 11:10 | BH.SGPN.GN ---
Behaviors/Verbalizations/Mental Status: []Client alert and oriented, casually dressed and groomed. Eye contact good. Motor activity appropriate. Speech within normal limits. Affect unable to gather due to wearing a mask for COVID-19 protocol, mood anxious, euthymic. Thoughts linear, logical, no signs of hallucinations or delusions. Client Response/Progress/Benefit: []Client was an active participant, contributing to discussion and listening attentively to peers. Client participated during discussion on the change process as well as weighing the pros and cons associated with change. She provided personal examples and shared specific emotions one might experience throughout the process of change, indicating determination and a sense of accomplishment as emotions she has associated with change. Client benefited from learning to work through pros/cons of personal changes through use of decisional balance sheet. Identified a change she wants to make is deciding to move out of her father?s house. Client able to identify the pros and cons of this change and indicated that making the change would improve her self-esteem and feel more independent. Progress noted in improved skill application and communication with supports. Recommended continued IOP tx to prevent decompensation, improve mood stability, and increase anxiety management skills. Narrative Note: []
--- NOTE | 2019-11-16 12:17 | PCM.BH.PN ---
Progress Note Progress Note: History of Present Illness/Interim History: [] Patient is a 19-year-old single female seen in follow-up at the [facility] behavioral health IOP program. I last saw her 1 month ago and she is being seen for depression, anxiety and PTSD. The patient says she is tolerating her medications well. She has been compliant with her medications. She states however that her mood feels a little hypomanic at times and she is more productive but overall she finds it irritating and feels it is not contributing to her quality of life in a positive way. Her sleep, however, has improved in the past few weeks. She wishes for medication that will help eliminate or reduce her hypomanic symptoms and episodes. She still having him occasional panic attacks once or twice a week. She remains in grief for her mother's but feels the hypomania is superimposed on this. She denies any suicidal or homicidal ideation. She denies any hallucinations or delusions. She denies any thoughts of . Current Psychiatric Medications: [] Lamictal 100 mg (increased to 100 mg today after 2 weeks on 50 mg). Vistaril 25 mg as needed 3 times daily. Mental Status Examination: [] Patient is a 19-year-old female who is seen wearing a mask due to the pandemic. She is casually dressed and groomed with good hygiene and has no psychomotor agitation or retardation. She is cooperative during the interview and eye contact is good. Her speech is regular rate and rhythm and fluent with no pressure. Affect is full. Thought process is goal-directed and organized. Thought content: No evidence of suicidal or homicidal ideation. No evidence of passive thoughts. No evidence of hallucinations or delusions. Judgment is intact. Insight: Improving. Impulsivity: Low to moderate. Diagnoses: [] [place] I: [] Bipolar 2 disorder, most recent episode hypomanic; generalized anxiety disorder; history of PTSD; bereavement [place] II: [] Deferred [place] III: [] Negative [place] IV:[]] Primary support and school and grief issues Plan: [] Patient will continue the IOP program as the structure, support, education, individual and group therapy will hopefully prevent worsening of the patient's symptoms. She felt safe during the interview and if at any time she does not feel safe she will let us know or go to the emergency room. The risks, options, and possible complications and side effects of the medications were discussed with the patient and she understands and accepts these. The patient is tolerating the Lamictal well and agrees to increase to 100 mg p.o. daily today. She has a prescription for this medication. In addition after long discussion of the side effects including tardive dyskinesia the patient agrees to be placed on Abilify 2 mg p.o. every morning daily. Prescription was given for this 30 days with no refills. She will continue to follow-up with her outpatient providers and I will follow-up with the patient in 1 week. They Abilify may need to be increased to have a mood stabilizing affect on the hypomania.
--- NOTE | 2019-11-16 14:46 | BH.MDN ---
Multi-Disciplinary Note - Note Family Time Started:: 12:15 Date: 11/16/19 Purpose of session/treatment goals addressed:: The purpose of this session was to engage client's father in client's treatment by addressing symptoms, warning signs, and strategies to provide support. Another purpose was to improve communication and provide psychoeducation. Eye Contact:: Good Motor Activity:: Restless Appearance:: Casual Speech:: Rapid Mood:: Anxious Affect:: Other - unable to gather due to wearing a mask for COVID protocol Thoughts:: Linear, Logical, No evidence of hallucinations/delusions noted Staff Interventions:: Therapist used open-ended questions and active listening to gather information on client's, and her father?s, expectations for the session. Therapist encouraged open communication and provided clarification when necessary. Therapist provided psychoeducation on anxiety, bipolar, grief, and cognitive distortions. Therapist advocated for client?s treatment needs and empowered client to share what support client will help client. Therapist assisted client and her father in setting realistic goals to improve their communication. Therapist gave client and her father a handout on ways to help loved ones with anxiety. Client Response:: Client and her father responded well to session, open to meeting with therapist. Client's expectations for session were to increase father?s understanding of bipolar disorder, provide insight to topics in IOP, and improve communication. Client's father stated he wants to help his daughter anyway he can. Client's father shared he has seen progress in client, especially in client's reduction in intensity of symptoms and response to stressors. Client demonstrated empowerment as she discussed her views on progress with father. Receptive to psychoeducation on anxiety, cognitive distortions, and bipolar disorder. Client able to provide insight to her father of how bipolar and anxiety manifest for client. Client and her father were open to discussing ways to better improve communication in their relationship. Started with identifying strengths in their relationship which included: going out to eat together, cooking, and having friends over. Client and her father boy recognized that their busy schedules and ongoing grief can create some tension and conflict. Receptive to psychoeducation on stress and praise for getting grief counseling. Client advocated for herself and shared ways she and her father could better communicate. Client shared she and her father will ?snap? at each other and say hurtful things. Discussed ways to improve this which included: scheduling time together, leaving notes of appreciation for each other, and writing out stressors so they can talk later. Client shared belief that her relationship with her father would improve if client got physical space as well. Client stated she plans to move out within the month and her father was supportive. Risks/Concerns:: Client denies any suicidal ideations, plan, or intent as of 11/16/19. Progress Toward Goals/Plan:: Client has been responding well to treatment AEB client?s self-report of improving interpersonal relationships and application of coping skills to manage mood symptoms. Client?s father also reports seeing progress in client?s mood. Client and her father recognize they can improve in communication which could positively impact both of their mental health. Client continues to endorse mood instability, anxiety, crying spells, cognitive distortions, grief, and sleep issues. Will continue IOP tx to promote mood stability, reduce intensity and duration of anxiety and mood symptoms, and improve daily functioning. Time Stopped:: 13:10
--- NOTE | 2019-11-22 09:05 | BH.SGPN.GN ---
Behaviors/Verbalizations/Mental Status: [] Eye contact is good. Motor activity is appropriate. Appearance is casual. Speech is Appropriate. Mood is anxious. Affect is congruent. Thoughts are linear and logical. No evidence of psychosis. Reviewed daily check in sheet and no reports of suicidal ideations or intent. Client Response/Progress/Benefit: [] Pt was an active participant in group discussion. Emotion for today is anxious. She continues to ruminate quite extensively on her upcoming move in December feeling as if she is not prepared. Shared that co-worker verbalized that she appeared stressed out however she denies this. Insight that she was getting overwhelmed and actually took this past weekend off from worrying about he move. Motivated. Told group about a phone dulce that has been very helpful called Motivation which has affirmations throughout the day. This dulce has been helpful to reframe her thinking. Progress noted per pt report. Increased stress however verbalizes that she is sleeping well most days and utilizes skills to help. Will continue in IOP to maintain safety, stabilize mood, and prevent decompensation. Narrative Note: []
--- NOTE | 2019-11-22 10:16 | BH.SGPN.GN ---
Behaviors/Verbalizations/Mental Status: []Client alert and oriented, casual dress, hygiene tended to. Eye contact good. Motor activity appropriate. Speech within normal limits. Affect congruent, mood anxious. Thoughts linear, logical, no signs of hallucinations or delusions. Client Response/Progress/Benefit: []Engaged participant AEB pt providing input throughout session, listening attentively to others and taking notes. Engaged during psychoeducation portion reviewing fixed mindset. Pt worked with group to identify how a fixed mindset can impact our mental health which included: decreased motivation, giving up when faced with a setback, not asking for help, low self-esteem, and staying stuck. Pt stated having a fixed mindset will lead to lack of personal growth because stuck in your ways. Seemed to connect with others when discussing example fixed mindset thoughts. Pt identified one fixed thought she has is, I'm too overwhelmed and I can't handle this. Pt did well to recognize that this fixed thought leads to feeling guilty and hopeless. Seemed to benefit from group by increasing awareness of how one's mindset impacts mental health. Pt to continue IOP level of care to increase healthy coping skills, maintain safety, and prevent decompensation. Narrative Note: []
--- NOTE | 2019-11-22 11:16 | BH.SGPN.GN ---
Behaviors/Verbalizations/Mental Status: [] Client alert and oriented, casually dressed and groomed. Eye contact good. Motor activity appropriate. Speech within normal limits. Affect unable to gather due to client wearing a mask as part of COVID-19 protocol. mood anxious and euthymic. Thoughts linear, logical, no signs of hallucinations or delusions. Client Response/Progress/Benefit: [] Client engaged during discussion, providing examples, and listened attentively to peers. Client actively taking notes and remained attentive during discussion on growth mindset. Did well to work with group on identifying characteristics and benefits of adopting a growth mindset. Client provided input during example activity in which participants helped reframe example fixed thoughts into growth mindset thoughts. Client worked to apply skills learned in reframing own personal fixed thoughts. She identified reframing thought of ?I can?t do it? with growth mindset thought of ?What step can I take to at least get started??. Noted that this would aid in improving self-esteem and willingness to try?. Benefitted from discussing benefits of growth mindset and brainstorming strategies for prompting growth-mindset. Client progress noted in self-report of improved mood and ability to apply thought challenge skills. Will continue IOP tx to maintain gains, continue to promote mood stability, and improve healthy coping repertoire. Narrative Note: []
--- NOTE | 2019-11-25 09:00 | BH.SGPN.GN ---
Behaviors/Verbalizations/Mental Status: []Client alert and oriented, disheveled appearance. Eye contact good. Motor activity appropriate. Speech within normal limits. Affect unable to gather due to wearing a mask for COVID-19 protocol, mood anxious and agitated. Thoughts linear, logical, no signs of hallucinations or delusions. Reviewed client?s symptom tracker, no risk for suicidal ideation, plan, or intent as of 11/25/19. Client Response/Progress/Benefit: []Client responded well to session, attentive and providing supportive statements. Client reports feeling agitated this morning. Client shared she has a lot of stressors on her plate at the moment as client plans to move and get a new job. Client stated she is both excited and overwhelmed about these changes in her life. Client is demonstrating progress though as client reports using deep breathing, using a growth mindset, and practicing self-compassion. Client shared this week has been stressful, but I'm having compassion for myself. Appeared to benefit from reflecting on her application of coping skills. Progress noted in client's self-report of increased ability to cope with stressors. Will continue IOP tx to promote gains, further decrease distortions, and improve daily functioning. Narrative Note: []
--- NOTE | 2019-11-25 10:14 | BH.SGPN.GN ---
Behaviors/Verbalizations/Mental Status: []Eye contact is good. Motor activity is appropriate. Appearance is casual. Speech is WNL. Mood is euthymic, anxious. Affect unable to gather due to wearing a mask for COVID-19 protection. Thoughts are linear and logical. No evidence of psychosis. Client Response/Progress/Benefit: []Pt was actively engaged AEB contributing to discussion and participating in activity. Connected with the topic of pitfalls and helped the group discuss barriers that keep them from choosing a healthier path to mental wellness. These barriers included; difficulties adjusting to change, fear of failure, habit, and lack of awareness. Pt reported that she is currently struggling with adjusting to a new lifestyle and is trying to prevent change from becoming a barrier in her own progress. Client was engaged during the activity and did well to provide support and encouragement to the group. Several times pt appeared to become anxious when the group faced potential failures during the task. She did well to use healthy coping skills to regulate these emotions and prevent becoming overwhelmed. Additionally, pt provided suggestions on improving their performance to the group. Pt benefited from increased awareness on the impact that pitfalls can have on mental health. Progress in reports of improved coping and ability to internalize skills learned in tx. Will continue IOP tx to maintain mood stability, improve communication with supports, and better manage her mental health sx. Narrative Note: []
--- NOTE | 2019-11-25 14:16 | BH.MDN_ITS ---
Multi-Disciplinary Note - Note 45-min Individual Time Started:: 11:16 Date: 11/24/19 Purpose of session/treatment goals addressed:: The purpose of this session was to address current symptoms, stressors, and triggers. Another goal was to challenge cognitive distortions and break down stressors. Other topics included prioritizing and boundaries. Eye Contact:: Good Motor Activity:: Restless Appearance:: Casual Speech:: Rapid Mood:: Anxious Affect:: Congruent Thoughts:: Linear, Logical, No evidence of hallucinations/delusions noted Staff Interventions:: Therapist used active listening and open-ended questions to explore client?s current symptoms, triggers, and application of coping skills. Therapist used strengths perspective to empower client on her use of emotional regulation skills, thought challenging, and improved communication. Therapist had client identify her top five stressors and rate them by importance and urgency. Therapist helped client break down her stressors by focusing only on the ones that are most urgent and important within the next week. Therapist gave client homework to practice self-care each night for 20-30 minutes and to begin organizing for her move. Therapist also encouraged client to identify one reason a day she deserves to set boundaries. Client Response:: Client responded well to session, open to meeting with therapist. Client reports she has seen progress in her increased communication with supports which has improved client?s relationships. Client stated she has also seen a shift in her thinking and client recognizes negative thoughts more quickly now. Client reported she is currently experiencing acute stress due to multiple stressors occurring at once. Client?s stressors include: moving, finding a new job, getting a new car, managing finances, and self-care. Client s hared she is struggling to figure out what steps to take in order to cope and manage these stressors. Receptive to activity of rating her stressors by most important and most urgent within the next week. Through this process, client able to put two stressors ?on the back burner? and focus mostly on moving, finances, and self-care. Client and therapist discussed strategies to help client better manage these stressors. Client?s strategies included: proactively packing and organizing, self-care for 20-30 minutes a night, and setting reminders for herself to save money. Client shared right now a barrier to self- care is helping her friends pack. Discussed the importance of boundary setting. Client willing to identify one reason each day that she deserves to set boundaries. Risks/Concerns:: Client denies any suicidal ideations, plan, or intent as of 11/05/19. Future oriented. No signs of hallucinations or delusions. Progress Toward Goals/Plan:: Client has been responding well to treatment AEB her engagement in group and individual sessions. Client self-reports progress in increased communication, better relationships, and use of healthy coping skills. Client continues to juggle multiple stressors at once which causes increased anxiety, but client stated belief she is managing anxiety better than she has before. Client continues to endorse negative thinking, anxiety on a daily basis, and restlessness. Will continue IOP tx to promote mood stability, reduce intensity and duration of anxiety and mood symptoms, and improve daily function ing. Time Stopped:: 12:05
--- NOTE | 2019-11-29 09:00 | BH.SGPN.GN ---
Behaviors/Verbalizations/Mental Status: []Client alert and oriented, disheveled appearance. Eye contact good. Motor activity appropriate. Speech within normal limits. Affect unable to gather due to wearing a mask for COVID-19 protocol, mood agitated and anxious. Thoughts linear, logical, no signs of hallucinations or delusions. Reviewed client?s symptom tracker, no risk for suicidal ideation, plan, or intent as of 11/29/19. Client Response/Progress/Benefit: []Client responded well to session, attentive and giving feedback to peers. Client reports feeling really anxious this morning because today client will find out if she got the townhouse she applied for or not. Client shared she is experiencing chest tightness and other physical symptoms of anxiety. Client was encouraged to practice her calming skills to help manage anxiety in the moment. Client reported several mental health wins today which included: practicing thought challenging last night, opposite action mind over matter, self-care of song writing, and advocating for her boundaries with a co-worker. Client shared she is proud of herself for accomplishing things she did not think she could accomplish and for advocating for her boundaries. Client appeared to benefit from reflecting on her progress and application of coping skills. Will continue IOP tx to promote mood stability, increase the use of healthy coping skills, and reduce intensity of anxiety symptoms. Narrative Note: []
--- NOTE | 2019-11-29 10:12 | BH.SGPN.GN ---
Behaviors/Verbalizations/Mental Status: []Client alert and oriented, casually dressed and groomed. Eye contact good. Motor activity appropriate. Speech within normal limits. Affect unable to gather due to wearing a mask for COVID-19 protocol, mood anxious and euthymic. Thoughts linear, logical, no signs of hallucinations or delusions. Client Response/Progress/Benefit: []Client was an engaged participant throughout group session AEB client contributing to discussion of healthy versus unhealthy coping skills and taking notes throughout. Client reported ?It?s about how we react to stress, a more optimistic mindset will help to create a better outcome?. Group identified barriers to using healthy coping skills which included; habit, not wanting to put in the effort, lack of awareness, negative attitude, and toxic environments. Client agreed that learning healthy coping skills takes time and effort and discussed how she had to begin changing her environment and supports to continue making progress in treatment. Client participated in the challenge activity and agreed with the group on the importance of creating a strong foundation of healthy coping skills. Group discussed various skills that can aid in facilitating better application of health coping skills which included: accountability, positive self-talk, visual reminders, keeping in mind the consequences of not following through, and creating a routine. Client reported connecting most with focusing on the benefits of doing so. Client seemed to benefit from increased awareness of importance of increasing healthy coping skills and consequences of utilizing unhealthy coping skills. Client will continue IOP tx to promote gains, further improve healthy mood management, and continue to promote change behaviors. Narrative Note: []
--- NOTE | 2019-11-29 14:18 | BH.MDN ---
Multi-Disciplinary Note - Note 30-min Individual Time Started:: 10:54 Date: 11/29/19 Purpose of session/treatment goals addressed:: The purpose of this session was to address current symptoms, stressors, and triggers. Another goal was to challenge cognitive distortions and review homework. Other topics included maintenance plan. Eye Contact:: Good Motor Activity:: Restless Appearance:: Casual Speech:: Rambling Mood:: Euthymic, Anxious Affect:: Constricted Thoughts:: Linear, Logical, No evidence of hallucinations/delusions noted Staff Interventions:: Therapist used active listening and open-ended questions to explore client's current symptoms, stressors, and triggers. Therapist reviewed client's homework and processed this with client. Therapist explored client's progress with outpatient counseling. Therapist prompted client to use thought challenging and self-compassion skills in the moment. Therapist gave client a maintenance plan to begin for homework. Client Response:: Client responded well to session, open to meeting with therapist. Client shared she had her first session with her new outpatient therapist and it went well. Client reported they plan to meet every Thursday. Client stated she continues to be stressed about moving, but she is feeling overall much more positive about it. Client reported she feels like she is getting back to my old self. Client shared she is putting her two weeks in at her job because once she moves client will be unable to commute. Client also has been exploring options for returning to school. Client and therapist discussed balance and client recognized that she can benefit from not taking on too many major changes at once. Client and therapist reviewed homework from previous session. Client identified several reasons why she deserves to set boundaries. Some of these included: help with healing, everyone needs boundaries, self-love, making time for self, self-care is important, it makes a person stronger, and not people pleasing. Client shared setting boundaries continues to be hard for her, but she is improving. Receptive to completing a maintenance plan to promote gains she has made. Risks/Concerns:: Client denies any suicidal ideations, plan, or intent as of 11/29/19. Client is future oriented and has multiple protective factors. Progress Toward Goals/Plan:: Client has been responding well to treatment AEB her engagement in group and individual sessions. Client continues to report consistent use of self-care, thought challenging, and grounding skills to manage her symptoms. Client reports boundary setting is getting better, but client still struggles to reinforce her boundaries with friends. Client was able to set up weekly appointments at [facility] for outpatient counseling. Client continues to endorse negative thinking, anxiety, ruminations, racing thougths, and restlessness. Will continue IOP tx to promote mood stability, reduce intensity and duration of anxiety and mood symptoms, and improve daily functioning. Time Stopped:: 11:28
--- NOTE | 2019-11-30 12:12 | PCM.BH.PN_ITS ---
Progress Note Progress Note: History of Present Illness/Interim History: [] The patient is seen by telehealth in follow-up at the [facility] IOP program. I last saw the patient about 2 weeks ago and at that time she was started on Abilify. The patient says that she discontinued it after several days due to severe nausea. She states that she feels currently she is doing okay overall and feels that her symptoms have improved. She is still worrying a lot as she is moving out on her own in several weeks and this is really stressed her out. Her panic attacks however have decreased to less than once a week now. Her sleep is good at 7 to 8 hours per night. She no longer feels that she is hypomanic. She feels that the IOP program has helped her immensely and that she is learning valuable skills to help deal with the stresses in her life. She denies any suicidal or homicidal ideation or passive thoughts. She denies hallucinations or delusions. Current Psychiatric Medications: [] Lamictal 100 mg p.o. daily; Vistaril 25 mg as needed up to 3 times daily. Mental Status Examination: [] The patient is a 19-year-old female who appears normal for stated age and is casually dressed and groomed with good hygiene. She has no psychomotor agitation or retardation. Eye contact is good and her speech is regular rate and rhythm and fluent with no pressure. Affect is full and normal. Mood is euthymic. Thought process is goal-directed and organized. Thought content: No evidence of suicidal or homicidal ideation. No evidence of hallucinations, delusions or passive thoughts of . Judgment is intact. Insight is improving. Impulsivity is low to moderate. Diagnoses: [] [place] I: [] Bipolar 2 disorder; generalized anxiety disorder; history of PTSD; bereavement [place] II: [] Deferred [place] III: [] Negative [place] IV:[]] Primary support, school and grief issues Plan: [] Patient will continue the IOP program as the structure, support, education, group and individual therapy will hopefully prevent worsening of the patient's symptoms that might require hospitalization. She felt safe during the interview and if at any time she does not feel safe she will let us know or go to the emergency room. The risks, options, and possible complications and side effects of the medications were discussed with the patient and she understands and accepts these. No medication changes were made. A refill was given for a Lamictal for the patient #30 with 1 refill. In addition discussion was had specifically about the risk of Lamictal causing the control pills that the patient is on to possibly be less effective. She understands that she needs to not miss any days of her pills and if she does to use condoms. She understands that the Lamictal especially if at higher doses could make the control pills less effective. The patient agrees to not add any medications until she completes her move out of the house and then reassess her after her stress level is decreased in a few weeks. She will continue to follow-up with outpatient providers.
--- NOTE | 2019-12-01 10:15 | BH.SGPN.GN ---
Behaviors/Verbalizations/Mental Status: []Client alert and oriented, casually dressed and groomed. Eye contact good. Motor activity appropriate. Speech within normal limits. Affect unable to gather due to wearing a mask for COVID-19 protocol, mood euthymic and anxious. Thoughts linear, logical, no signs of hallucinations or delusions. Client Response/Progress/Benefit: []Client responded well to session, engaged and participating in group discussion. Client connected with the quote and shared ?this quote is exactly my situation.? Group discussed the difference between ruminating and reflecting for growth with group members. Client helped group identify the importance of change which included: growth, less anxiety and depression, confidence, and happiness. Client stated how recent changes client has made have caused anxiety but also growth. Group also identified barriers keeping clients from changing which included: fear of the unknown, fear of failure, comfort, and habit. Participated in the discussion of the different zones of change. Client reported she has struggled in both the comfort and danger zones. Client described her comfort zone as ?isolating, stubborn, and distortions.? Client described her danger zone as ?quick to snap, lack of follow through, and panic.? Client stated she has pushed herself in IOP to get into the learning zone which has helped client make progress. Appeared to benefit from gaining awareness of the benefits of change as well as the different zones of change. Will continue IOP tx to promote gains and further improve mood stability while client navigates life stressors. Narrative Note: []
--- NOTE | 2019-12-01 11:13 | BH.SGPN.GN ---
Behaviors/Verbalizations/Mental Status: []Client alert and oriented, casually dressed and groomed. Eye contact good. Motor activity appropriate. Speech within normal limits. Affect unable to gather due to client wearing a mask per COVID-19 protocol, though appears congruent, mood euthymic and anxious. Thoughts linear, logical, no signs of hallucinations or delusions. Client Response/Progress/Benefit: []Pt was engaged throughout AEB contributing to discussion on ?comfort zone? of behavior and potential costs as well as benefits of remaining in the comfort zone. Pt reported that for her the comfort zone can lead to: isolation, rationalizing toxic behaviors, depression, and decreased energy/motivation levels. Did well to work with the group on identifying potential mental health costs of remaining in one?s comfort zone which included: staying stuck, lack of personal growth, resistance to change, disengagement, and lack of motivation. Pt shared small steps she can take to step out of pt?s comfort zone as: more consistently practicing opposite action and finding a way to learn one new thing each day. Pt contributed to discussion reviewing importance of accountability in following through with identified goals. Appeared to benefit from psychoeducation and working with the group to brainstorm strategies for improving personal accountability. Pt identified using support from friends and writing out potential costs of not working on her goals as ways to promote personal accountability. Progress noted in self-report of improved mood as well as more active application of anxiety management skills learned. Pt will continue IOP tx to promote gains, further improve use of supports, and improve daily functioning. Narrative Note: []
--- NOTE | 2019-12-02 09:00 | BH.SGPN.GN ---
Behaviors/Verbalizations/Mental Status: [] Eye contact is good. Motor activity is appropriate. Appearance is casual. Speech is Appropriate. Mood is anxious. Affect is congruent. Thoughts are linear and logical. No evidence of psychosis. Reviewed daily check in sheet and no reports of suicidal ideations or intent. Client Response/Progress/Benefit: [] Pt was an active participant in group discussion. Emotion for today is super-duper anxious. Inpatient about the upcoming move. I just want to move and get it over with. Not scheduled to move for another couple weeks. Ruminating about things that need to get done and what could go wrong. Insight how she could use this event as a way to increase her skills to better manage her thoughts and emotions. Group helped reframed thoughts and normalized her anxiety and reworded it as excitement. She agreed with this taking some stigma away from how she was feeling. Utilizing and practicing skills despite distress which she notes is improvement. Benefited from group support, encouragment, and feedback. Will continue in IOP to maintain gains, prevent decompensation, and increase coping skills. Narrative Note: []
--- NOTE | 2019-12-02 10:15 | BH.SGPN.GN ---
Behaviors/Verbalizations/Mental Status: []Client alert and oriented, casually dressed and groomed. Eye contact good. Motor activity appropriate. Speech within normal limits. Affect unable to gather due to client wearing a mask as a COVID protocol, mood euthymic. Thoughts linear, logical, no signs of hallucinations or delusions. Client Response/Progress/Benefit: []Client was an active participant AEB providing input during discussion and listening attentively to others. Contributed to discussion of the quote and stated she could connect with the importance of learning ways to sit with uncomfortable feelings. Client shared ?being able to do this can keep us from avoiding the things that make us anxious.? Client connected with discussion on the difference between ?normal? anxiety and when anxiety becomes problematic. Discussing that problematic anxiety can occur ?when you can?t complete your activities of daily living anymore?. Client gained awareness of personal physical symptoms of anxiety which included: headaches, crying, light headedness, dry mouth, and racing heart. Client also identified safety behaviors client has used when feeling anxious. These safety behaviors included; isolating, biting her nails, and distracting herself with other things such as trying to solve other people?s problems. Client appeared to benefit from gaining insight to physical signs of anxiety and personal safety behaviors. Progress noted in self-report of improved anxiety management and increased use of supports. Will continue IOP to increase healthy coping skills, challenge distorted thoughts, and promote gains. Narrative Note: []
--- NOTE | 2019-12-02 11:15 | BH.SGPN.GN ---
Behaviors/Verbalizations/Mental Status: [] Eye contact is good. Motor activity is appropriate. Appearance is casual. Speech is Appropriate. Mood is anxious. Affect is congruent. Thoughts are linear and logical. No evidence of psychosis. Client Response/Progress/Benefit: [] Pt was an active participant in group discussion and provided insight on group topic. Attentive during psycho-education on mindfulness coping skills and their impact on her mental health wellness. Pt was able to identify self-soothing, mind-based, and body-based coping skills she wants to incorporate into her current coping skills, The skills she choose were creative arts, sitting outside, thought challenging, brain games, journaling, temperature change, exercise, massage, grounding, yoga, and weighted blanket. Progress noted. Receptive to incorporating new skills. Will continue in IOP to maintain safety, increase healthy coping skills, and prevent decompensation. Narrative Note: []
== END 2019-12-02 23:59 ==
LOC: BHIOP 09:00
PROVIDERS: PCP Nurse Practitioner Family; Referring Provider Psychiatry & Neurology Psychiatry; Visit Provider Psychiatry & Neurology Psychiatry
DX: F31.81 Bipolar II disorder (principal); F41.1 Generalized anxiety disorder; F43.10 Post-traumatic stress disorder, unspecified; Z63.4 Disappearance and death of family member; Z79.899 Other long term (current) drug therapy
CPT/HCPCS: H0035; 90832; 90834; 90837; 90847; 90853

== ENCOUNTER 2019-12-06 09:00 | Outpatient (RCR) | payer OTHER, SELFPAY ==
[2018-10-25 07:34] VITALS: BMI 32.7
[2019-12-03 00:35] VITALS: BP 106/62; PULSE 64
--- NOTE | 2019-12-06 09:01 | BH.SGPN.GN ---
Behaviors/Verbalizations/Mental Status: [] Client alert and oriented, casually dressed and groomed. Eye contact good. Motor activity appropriate. Speech within normal limits. Affect unable to gather due to wearing a mask for COVID-19 protocol, mood dysthymic and anxious. Thoughts linear, logical, no signs of hallucinations or delusions. Reviewed client?s symptom tracker, no risk for suicidal ideation, plan, or intent as of 12/06/19. Client Response/Progress/Benefit: [] Pt responded well to session, engaged throughout. Reports feeling frustrated today as she noted beginning to struggle with intrusive thoughts after meeting her outpatient counselor for the first time. Pt indicated that this had been triggering as she was asked to recount some of the events resulting in her admission to IOP tx. Pt acknowledged that the information is important for her counselor to know, but struggled with managing her emotions afterward. Indicated that she was however able to apply skills of opposite action and meditation which helped with improving her overall mood. Pt receptive of and appeared to benefit from encouragement provided by the group as well as challenging distorted thoughts of ?I feel like I?m spiraling?. Reports plans to ask her supports to aid in holding her accountable. Will continue IOP tx to increase utilization of emotion regulation skills, improve consistency, and prevent decompensation. Narrative Note: []
--- NOTE | 2019-12-06 10:15 | BH.SGPN.GN ---
Behaviors/Verbalizations/Mental Status: []Client alert and oriented, neatly dressed and groomed. Eye contact good. Motor activity appropriate. Speech within normal limits. Affect unable to gather due to wearing a mask for COVID-19 protocol, mood agitated. Thoughts linear, logical, no signs of hallucinations or delusions. Client Response/Progress/Benefit: []Client attentive and providing input to discussion. Contributed during discussion on the quote and shared ? we can invent an idea for a book, or invent scenarios in your mind ?like your friends hate you now.? Connected with the discussion about how distorted thought patterns can reinforce mental health symptoms and negatively impact self-esteem and personal relationships. Client attentive throughout the discussion on different types of thought distortions and noted that she connects with all or nothing thinking, mental-filter, overgeneralizing, and disqualifying the positives. Client shared she has made a lot of progress in recognizing and challenging her negative thoughts. Client stated she recently had some negative thoughts about her friends not liking client, but client stated she was able to reframe these thoughts. Appeared to benefit from increasing awareness of cognitive distortions and how they can impact emotions and behaviors. Client showing progress with generalization of healthy coping skills. Will continue IOP tx to reinforce coping skills, promote gains, and further combat distortions. Narrative Note: []
--- NOTE | 2019-12-08 10:10 | BH.SGPN.GN ---
Behaviors/Verbalizations/Mental Status: []Client alert and oriented, casual dress, hygiene tended to. Eye contact good. Motor activity appropriate. Speech within normal limits. Affect unable to assess as pt wearing a mask per COVID-19 protocol, mood dysthymic. Thoughts linear, logical, no signs of hallucinations or delusions. Client Response/Progress/Benefit: []Pt responded well to session AEB contributing to discussion, actively listening to others, and taking notes throughout. Pt appeared to connect well with topic of resilience and indicated that for her resilience means ?standing strong through the storm?. She indicated that for her to be resilient is ?all about learning and adapting? to various life stressors. Worked with the group to identify potential consequences of resisting rather than adapting when faced with trauma or adversity. Costs included: lashing out, increased depression and anxiety, panic, and a negative impact on overall ability to function. She remained attentive during on the psychoeducation on various granados factors in developing personal resilience. Pt actively contributed during small group discussion identifying benefits of each factor in fostering resilience. Pt seemed to benefit from increasing awareness of strategies to increase personal resilience and the impacts of resilience on managing mental health sx. Progress noted in pt improved mood, though continues to struggle with externalization and distorted thoughts impacting emotion regulation. Pt to continue IOP to continue use of healthy coping, challenge negative thoughts and prevent decompensation. Narrative Note: []
--- NOTE | 2019-12-08 11:09 | BH.SGPN.GN ---
Behaviors/Verbalizations/Mental Status: []Client alert and oriented, casually dressed and groomed. Eye contact good. Motor activity appropriate. Speech within normal limits. Affect unable to gather due to client wearing a mask for COVID-19 protocol, mood dysthymic. Thoughts linear, logical, no signs of hallucinations or delusions. Client Response/Progress/Benefit: []Client engaged participant as evidenced by client providing input throughout discussion and listening attentively to peers. Client participated in the discussion of how each resiliency component can help increase personal resiliency. Client identified current resiliency traits she currently possesses and then identified what trait she would like to improve. Client reports belief she has been using the resiliency traits of accepting change is a part of living and self-awareness. Client reported these traits have helped client be flexible and understand herself. Client stated she would like to work on increasing a hopeful outlook. Client identified strategies to help with this such as thought challenging, regular self-care, and listing positives from the day. Client appeared to benefit from increasing insight to ways in which client can improve resilience to adversity and daily stressors. Client is making progress AEB her generalization of coping skills, but she can continue IOP tx to further improve mood stability. Narrative Note: []
--- NOTE | 2019-12-08 14:07 | BH.MDN_ITS ---
Multi-Disciplinary Note - Note 45-min Individual Time Started:: 12:09 Date: 12/08/19 Purpose of session/treatment goals addressed:: The purpose of this session was to address current symptoms, stressors, and triggers. Another goal was to challenge cognitive distortions that are currently reinforcing self-doubt and depression. Other topics included self-love and self-care. Eye Contact:: Good Motor Activity:: Appropriate Appearance:: Casual Speech:: Appropriate Mood:: Dysthymic Affect:: Constricted Thoughts:: Linear, Logical, No evidence of hallucinations/delusions noted Staff Interventions:: Therapist used active listening and open-ended questions to explore client's current symptoms, stressors, and triggers. Therapist provided emotional support and used strengths perspective to help client reframe thinking. Therapist prompted client to use thought challenging and self- compassion skills in the moment. Therapist had client write out and challenge distortions during session, so client can practice doing this tonight for homework. Client Response:: Client responded well to session, open to meeting with therapist. Client shared she is feeling a little depressed today because of a trigger that happened earlier this week. Client shared this trigger brought back memories of her ex-boyfriend who broke up with client unexpectedly. Client stated she is also feeling sad because client feels disconnected from her online friends. Client perceives that these friends do not like her because they do not give me the support I want. Client shared she has not communicated this to her online friends and recognized she is relying on her online friends to mind-read client's emotions. Discussed the pros and cons and communicating her needs with friends. Client shared I know I need to, but I don't want to make it an issue. Client receptive to practicing thought challenging in session as client shared it has been hard to do on her own this week. Client challenged two thoughts everyone leaves me and I'm not good enough. Client reframed these thoughts by reminding herself of the supports in life that did not leave her and sharing other people don't get to decide if I'm enough, I do. Risks/Concerns:: Client denies any suicidal ideations, plan, or intent as of 12/08/19. Future oriented and continuing to use coping skills. Progress Toward Goals/Plan:: Client has been responding well to treatment AEB her engagement in group and individual sessions. Client reports increased depressive symptoms this week due to a trigger that happened early in the week. Client recognizes she has made a lot of progress, but because her mood is depressed client?s thoughts are more negative. Client continues to endorse negative thinking, anxiety, ruminations, racing thoughts, and restlessness. Client admits this week she has not been using as many healthy skills as ?I want to.? Will continue IOP tx to promote mood stability, reduce negative thinking, and improve self-care. Time Stopped:: 12:52
--- NOTE | 2019-12-09 10:20 | BH.SGPN.GN ---
Behaviors/Verbalizations/Mental Status: [] Client alert and oriented, casually dressed and appropriately groomed. Eye contact good. Motor activity appropriate. Speech within normal limits. Affect congruent, mood dysthymic, anxious. Thoughts linear, logical, no signs of hallucinations or delusions. Client Response/Progress/Benefit: []Pt was an active participant in group and provided input throughout discussion. Connected with the topic of obstacles and solutions and worked with group to identify common internal and external barriers that keep people stuck. Group identified; self-doubt, negative thinking, unhealthy coping skills, poor boundaries, and lack of motivation as potential internal barriers that could prevent progress towards a better quality of life. Client shared current reality as feeling trapped in her own head and surrounded by negative thoughts, but still trying to move forward. Client's realistic, desired reality to be having ?more peace?, feeling proud of herself, and able to continue to provide herself with positive feedback. Benefited from group as client was able to identify current mental health state and impact of internal barriers on progress. Will continue IOP tx to promote change behaviors, increase communication with supports and healthy coping skills, as well as improve functioning. Narrative Note: []
--- NOTE | 2019-12-09 11:20 | BH.SGPN.GN ---
Behaviors/Verbalizations/Mental Status: []Client alert and oriented, neatly dressed and groomed. Eye contact good. Motor activity appropriate. Speech within normal limits. Affect unable to gather due to wearing a mask for COVID-19 protocol, mood dysthymic. Thoughts linear, logical, no signs of hallucinations or delusions. Client Response/Progress/Benefit: []Client was an active participant in group discussion and attentive during the activity. Engaged during activity and provided ideas on how to cope with internal barriers that keep clients stuck from moving towards goals. Barriers identified by client were: not using coping skills ?to my potential,? distorted thinking, and lack of motivation. Group helped identify strategies to combat barriers identified by group members. Client reported she would like to work on overcoming the barrier of not forgiving herself. Client shared she will do this by practicing grounding techniques and continuing her meditation practice. Benefited from group by identifying obstacles and solutions to desired reality. Progress noted in client?s increased self-awareness of barriers and generalization of coping skills. Client reports increased negative thinking this week. Will continue IOP tx to promote the use of healthy coping skills and challenge distortions. Narrative Note: []
--- NOTE | 2019-12-13 09:05 | BH.SGPN.GN ---
Behaviors/Verbalizations/Mental Status: []Client alert and oriented, casually dressed and groomed. Eye contact good. Motor activity appropriate. Speech within normal limits, at times rambling while processing. Affect unable to gather due to wearing a mask for COVID-19 protocol, mood dysthymic and anxious. Thoughts linear, logical, no signs of hallucinations or delusions. Reviewed client?s symptom tracker, no risk for suicidal ideation, plan, or intent as of 12/13/19. Client Response/Progress/Benefit: []Pt responded well to session, engaged throughout. Reports feeling tired today as she stayed the night with a friend and did not sleep as much as usual. Pt went on to note that her fatigue may also be influenced by trying to prepare for her upcoming move this weekend. Noted this has been both a positive and a stressor, indicating that she is excited to move but struggling to complete everything she still has left to do. Pt shared additionally feeling pressured to visit with her family prior to moving which has been an added stressor. Pt continues to struggle with focusing on external stressors which has impacted ability to regulate emotions. However, when challenge to identify areas within her control pt did well to note improved ability to identify and challenge negative thoughts. Additionally expressed that she is working to remind herself of the progress she has made which has been helpful in continuing to promote progress. Will continue IOP tx to increase utilization of emotion regulation skills, improve consistency, and prevent decompensation. Narrative Note: []
--- NOTE | 2019-12-13 10:20 | BH.SGPN.GN ---
Behaviors/Verbalizations/Mental Status: []Client alert and oriented, casually dressed. Eye contact good. Motor activity appropriate. Speech within normal limits. Affect could not be assessed due to pt wearing a mask as a requirement during COVID-19 pandemic. mood euthymic and slightly anxious. Thoughts linear, logical, no signs of hallucinations or delusions. Client Response/Progress/Benefit: []Pt engaged participant throughout session AEB pt providing input during discussion, appeared to listen attentively to peers and completed worksheet. Pt helped group identify triggers of anger include: feeling disrespected by others, feeling overwhelmed, high expectations of self, overwhelming stress, and comparing self to others. Pt shared emotions that are underlying anger include: disappointment, overwhelmed, insecure, jealousy, lonely, hurt, and loss/grief. Pt identified the following as ways she expresses anger: isolating, lashing out, yelling, blaming others, minimize symptoms, and self-sabotage by pushing others away. Pt seemed to benefit from increased awareness of how unmanaged anger can impact self and others. Pt to continue IOP to continue use of healthy coping skills, challenge distorted thoughts and prevent decompensation. Narrative Note: []
--- NOTE | 2019-12-13 11:19 | BH.SGPN.GN ---
Behaviors/Verbalizations/Mental Status: []Client alert and oriented, casually dressed and groomed. Eye contact good. Motor activity appropriate. Speech within normal limits. Affect unable to gather due to client wearing a mask for COVID-19 protocol. mood anxious. Thoughts linear, logical, no signs of hallucinations or delusions. Client Response/Progress/Benefit: []Client was an engaged participant throughout group AEB client providing input throughout discussion. Client helped the group identify common warning signs of anger and identified personal warning signs of anger which included; chest tightness, clenched jaw, shaking, being tense, sense of urgency, irritability, racing thoughts, and stockpiling. Group brainstormed with group healthy coping skills to help manage anger which included: deep breathing, opposite action, exercise, taking breaks, grounding, and journaling. Client selected guided meditation as the skill client wants to incorporate this week to manage anger. Client receptive to practice this skill each day to help make it a habit. Client appeared to benefit from identifying different techniques to manage anger as well as gaining awareness of warning signs. Progress noted in client?s consistent use of coping skills. Client will continue IOP tx through this week to maintain mood stability, establish aftercare, and reinforce healthy coping skills. Narrative Note: []
--- NOTE | 2019-12-13 14:02 | BH.MDN ---
Multi-Disciplinary Note - Note 30-min Individual Time Started:: 12:23 Date: 12/13/19 Purpose of session/treatment goals addressed:: The purpose of this session was to review client's progress and review strategies that will promote mood stability and gains made in [facility]. Another goal was to discuss discharge recommendations and process any current stressors. Eye Contact:: Good Motor Activity:: Appropriate Appearance:: Casual Speech:: Appropriate Mood:: Euthymic, Anxious Affect:: Congruent Thoughts:: Linear, Logical, No evidence of hallucinations/delusions noted Staff Interventions:: Therapist used open-ended questions to explore client's thoughts on personal progress. Therapist also provided emotional support and helped client problem-solve current stressors. Therapist reviewed supports and coping skills with client to promote gains and prevent setbacks. Therapist discussed aftercare plan with client and used strengths-perspective to empower client on the goals client has accomplished. Therapist discussed the benefits of ongoing maintenance, boundary setting, and use of daily coping skills. Therapist gave client a quote collage for closure. Client Response:: Client responded well to session, open to meeting with therapist. Client reported she is sad to be leaving [facility] as the program has become client's new normal. Client recognized that she has made a lot of progress and described her progress as shocking. Client stated she feels both like her old self and a new person. Client self-identified progress as improved self-care, increased self-awareness, better stress management with daily stressors, improved interpersonal skills and friendships, and less panic attacks. Client shared she is looking forward to continuing therapy to learn how to further reduce panic and manage symptoms. Client identified coping skills to help client maintain progress which included: thought challenging, boundary setting, sleep schedule, self-care, meditation, and communicating with supports. Client plans to participate in the [facility] aftercare program, but client is unable to start for a few weeks because she is moving. Client expressed gratitude for the [facility] program and staff. Risks/Concerns:: Client denies any suicidal ideations, plan, or intent as of 12/13/19. Progress Toward Goals/Plan:: Client has responded well to treatment and has made great progress while in [facility]. Client self-reports overall improved mood and ability to manage daily stressors, increased coping skills, and more self-awareness. Client reports increased ability to manage her emotions and challenge negative thoughts and improved self-care. Client still endorses mild anxiety and depression, but she reports increased confidence to manage these symptoms and has hope for the future. Will discharge from [facility] on 12/15/19. Time Stopped:: 12:57
--- NOTE | 2019-12-14 08:59 | BH.SGPN.GN ---
Behaviors/Verbalizations/Mental Status: []Client alert and oriented, casual dress, hygiene tended to. Eye contact good. Motor activity appropriate. Speech within normal limits. Affect unable to accurately assess as client wearing mask per COVID-19 protocol, mood euthymic and anxious. Thoughts linear, logical, no signs of hallucinations or delusions. Reviewed client?s symptom tracker, denies denies any suicidal ideation, plan, or intent as of 12/14/19. Client Response/Progress/Benefit: []Client responded well to session, attentive and provided supportive statements to peers. Client reports feeling content but nervous today. Client shared she has been working on preparing for her upcoming move this weekend but continues to struggle with motivation to pack. Receptive of and appeared to benefit from supportive feedback and suggestions provided by group on increasing motivation levels. Client expressed plans to try visualizing her new apartment to increase excitement and motivate her to start the packing process. Client noted current positives as watching an ASMR video prior to work yesterday which helped to relax her and challenging herself to view positives despite a difficult start to her morning. Progress noted in client's application of healthy calming skills, but she can continue to work on challenging self to identify internal sources of motivation as she often reports relying on external sources. Will continue IOP tx to promote gains and further improve thought challenging, as well as promoting skills. Narrative Note: []
--- NOTE | 2019-12-14 10:05 | BH.SGPN.GN ---
Behaviors/Verbalizations/Mental Status: []Client alert and oriented, neatly dressed and groomed. Eye contact good. Motor activity appropriate. Speech within normal limits. Affect unable to gather due to wearing a mask for COVID-19 protocol, mood neutral. Thoughts linear, logical, no signs of hallucinations or delusions. Client Response/Progress/Benefit: []Client active participant in group AEB client contributing thoughts and ideas throughout session and listening attentively to peers. Client connected with the quote and shared ?fear used to hold me back, but now I know I need change.? Group worked together to identify barriers to taking action in their lives which included: habits, negative thinking, apathy, lack of motivation, and being stuck in the past. Group also identified that taking action is needed in order to improve mental health. Client identified areas client would like to take back control over in life to include: low motivation at times, ?panic mode,? fear of the unknown, and cognitive distortions. Client shared if she could take control over these things client would be more engaged in life and less anxious. Benefited from awareness of personal areas client wants to improve and benefits to taking action towards mental wellness. Will continue IOP tx and discharge tomorrow. Can benefit from one more IOP day to reinforce healthy coping skills and provide treatment closer. Narrative Note: []
--- NOTE | 2019-12-15 08:45 | BH.AFTERPLAN ---
Aftercare Plan - Demographics Treatment End Date:: 12/15/19 Psychiatrist:: Kaitlin Ferrer Psychiatrist Office #:: [phone] [facility] Therapist:: Tess Cuevas Therapist Phone #:: [phone] - Medications Home Medications: Home Medications Apri 28 Day Tablet 1 tab PO DAILY 10/19/19 Lamotrigine [Lamictal] 100 mg PO DAILY 30 Days #30 tab 11/30/19 hydrOXYzine pamoate capsule [Vistaril pamoate capsule] 25 mg PO TID PRN PRN 11/30/19 - Plan Details Progress/Aftercare Plan Details:: Verna has shown great strides and progress since admission to [facility]. When Verna started [facility] she was experiencing significant anxiety, daily panic attacks, depression with isolation, and hypomania/erratic moods. Verna did not feel connected with supports and struggled to let others know about her mental health. Now, Verna can catch and challenge distortions that reinforced anxiety and depression, use healthy coping skills more easily, and she feels more confident in her abilities to cope with daily stressors. Verna self-reports progress in the following areas: better relationships, improved stress management, increased independence, improved self-care, increased self-awareness, and improving boundaries. Benita also reports less isolation and feeling more like her ?old and new? self. Verna was highly active in both group and individual therapy sessions. Verna contributed to group discussions, offered emotional support to peers, and consistently followed through with her GAPs. In individual sessions, Verna was receptive to feedback, consistent with homework, and willing to push herself despite anxiety and negative thinking. Verna?s DSM-5 scores decreased overall by 40% since admission. Depression decreased by 40%, anxiety 42%, and brandy 33%. Verna?s high motivation, willingness to be uncomfortable, and joyful personality were likely the reason for her significant progress. Verna plans to attend [facility] aftercare group which starts for Verna on 12/29/19. [facility] Verna?s next appointment is 12/19/19 at 2:00pm. Strategies for Success:: 1. Opposite action! Continue to break that cycle of anxiety and depression by changing your behaviors in the moment! You?ve done a great job with this so far 2. Thought challenging! Remember to challenge distortions and reframe your thinking! Biggest distortions to pay attention to: catastrophizing, personalizing, mental filter, overgeneralizing, and all or nothing thinking 3. self-care! You deserve to take time for you, which includes SETTING BOUNDARIES! Also remember it?s okay to verbalize your needs to your supports and friends. 4. Challenge your perspective and practice self-compassion. Ask yourself if your expectations are truly realistic for yourself and for others. 5. Routine! Keep up with a sleep routine, medication routine, and self-care routine. 6. Grounding! Meditation, breathing, music, nature, etc. 7. Set small, realistic goals. 8. Practice positive self-talk and keep track of your strengths and progress. 9. Remember progress isn?t linear! You may have a setback or bump in the road, but that doesn?t mean you?ve lost all progress. 10. Give yourself some credit and remember YOU ARE WORTHY! - Appointments Appointments/Referrals to Other Services:: 1. Follow up with Pooja at [facility]. Next appointment is 12/19/19. 2. IOP aftercare starting on 12/29/19 at 2:00pm 3. Follow up with [facility] for medication management. Diagnosis: Bipolar 2 disorder, most recent episode hypomanic or mixed F31.81; generalized anxiety disorder; history of PTSD
--- NOTE | 2019-12-15 09:05 | BH.SGPN.GN ---
Behaviors/Verbalizations/Mental Status: [] Eye contact is good. Motor activity is appropriate. Appearance is casual. Speech is Appropriate. Mood is anxious. Affect is congruent. Thoughts are linear and logical. No evidence of psychosis. Reviewed daily check in sheet and no reports of suicidal ideations or intent. Client Response/Progress/Benefit: [] Pt was an active participant in group discussion. Emotion is anxious. Shared with the group that today is her last day in the program stating that it is bittersweet. Notes recent significant changes such as last day in IOP, finished up with her grief counselor (mother's ), starting a new job, and moving into her first apartment. Despite these stressors she notes that she is focusing on what she can control. Notes being impatient and scared however mostly excited. Continues to utilize skills such as thought-stopping, reframing, affirmations, and mindfullness. Progress noted. Benefited from group support, encouragement, and feedback. Will be discharged today. Narrative Note: []
--- NOTE | 2019-12-15 11:05 | BH.SGPN.GN ---
Behaviors/Verbalizations/Mental Status: []Client alert and oriented, casual dress, hygiene tended to. Eye contact good. Motor activity appropriate. Speech within normal limits. Affect could not be assessed due to pt wearing a mask due to COVID-19 pandemic requirements. mood euthymic, slightly anxious.Thoughts linear, logical, no signs of hallucinations or delusions. Client Response/Progress/Benefit: []Pt active participant AEB pt listening attentively to peers, providing input throughout session and completing worksheet. Pt benefitted from listening as group reflected upon the mental health benefits of taking small actionable steps towards addressing barriers and promoting healthy change in daily life. Pt did well to work with the group on completing the example Change Action Plan and applying the skills learned to pt own Action Plan. Pt identified wanting to decrease anxiety and improve motivation. Pt shared first goal is to meditate for 3 minutes everyday to decrease anxiety. Stated second goal is to do something productive once a day other than work. Pt progress noted in ability to identify concrete and realistic steps to addressing barriers to actionable change identified. Recommended continued IOP tx to continue use of healthy coping, maintain gains and prevent decompensation. Narrative Note: []
--- NOTE | 2019-12-15 11:10 | BH.SGPN.GN ---
Behaviors/Verbalizations/Mental Status: []Client alert and oriented, casually dressed and groomed. Eye contact good. Motor activity appropriate. Speech within normal limits. Affect difficult to assess as pt wearing a mask due to COVID-19 hospital protocol, mood euthymic and anxious. Thoughts linear, logical, no signs of hallucinations or delusions. Client Response/Progress/Benefit: []Client an active participant AEB contributing to discussion and taking notes throughout. Client participated in group activity highlighting the various barriers in effectively utilizing supports and strategies for promoting effective use. Client participated in discussion reviewing strategies to improve overall use of current supports as well as how to begin building new supports. Client identified she would like to show more appreciation of the support she is given by remembering to reach out and express gratitude. Client shared this will help improve their overall communication and strengthen their link. Client seemed to benefit from identifying a strategy for improving support she would like to begin implementing in her own life. Progress noted by client's improved ability to manage emotions and increased insight into her own mental health warning signs. Client to discharge from [facility] given gains made and encouraged to continue with outpatient counseling continue to promote healthy change behaviors, further improve emotion regulation, and maintain gains made. Narrative Note: []
--- NOTE | 2019-12-15 13:34 | BH.DS ---
Discharge Summary - Demographics Date of Admission:: 10/18/19 Discharge Date: 12/15/19 Presenting Problems at Admission:: Client is a 19-year-old female with a history of PTSD, RAO, and Bipolar symptoms. Client had not been previously diagnosed with Bipolar, until recently. Client was self-referred to [facility] due to erratic moods, panic attacks, and mental health symptoms interfering with her ability to function. Client reports extensive history of mood swings for the past year that have been worsening in intensity. Client has a history of trauma and her mother recently . Client has had several trials with SSRIs, but found that they only exacerbated client's symptoms. At admission, client endorsed a depressed mood, crying spells, lack of motivation, survival ambivalence, hopelessness, and anhedonia. Client reported that her depressive episodes are typically followed by hypomanic episodes with impulsivity, excessive spending, feeling wired, racing thoughts, and insomnia for two days. At admission, client also presented with severe anxiety, ruminations, phobia of spiders, and constant fears about her health. Client reported her symptoms were impacting her ability to maintain relationships, work, and function at her baseline. Discharge Diagnoses:: Bipolar 2 disorder, most recent episode hypomanic or mixed F 31.81; generalized anxiety disorder; history of PTSD Reason for Discharge:: Client has made significant progress towards her treatment goals AEB her reduction in DSM-5 symptom scores, self-report of increased ability to manage anxiety and mood symptoms, and improved functioning. Client no longer meets criteria for [facility] level of care and will transition to outpatient counseling and [facility] aftercare. - Treatment Progress During Treatment & Response: Client has shown great strides and progress since admission to [facility]. When client started [facility] she was experiencing significant anxiety, daily panic attacks, depression with isolation, and hypomania/erratic moods. Client reported that she did not feel connected with supports and struggled to let others know about her mental health. At discharge, client reported the ability to catch and challenge distortions that reinforced anxiety and depression, use healthy coping skills more easily, and feeling more confident in her abilities to cope with daily stressors. Client self-reported progress in the following areas: better relationships, improved stress management, increased independence, improved self-care, increased self-awareness, and improving boundaries. At discharge, client reported less isolation and feeling more like her ?old and new? self. Client was highly active in both group and individual therapy sessions. Client contributed to group discussions, offered emotional support to peers, and consistently followed through with her GAPs. In individual sessions, client was receptive to feedback, consistent with homework, and willing to push herself despite anxiety and negative thinking. Client?s DSM-5 scores decreased overall by 40% since admission. Depression decreased by 40%, anxiety 42%, and brandy 33%. Client also denied any survival ambivalence at discharge as well. Issues Still to be Addressed:: Client can benefit from continuing to process and address her grief and trauma. Client would like to further improve her coping skills, management of bipolar symptoms, and boundary setting. Client can also benefit from ongoing work on challenging distortions and increasing self-compassion. Discharge Recommendations/Instructions:: [facility]. Client will be doing trauma work ongoing with Pooja. Client also encouraged to follow up with [facility] for medication management. Client will be moving to [place] and may need new referrals for psychiatry. Client will be participating in [facility] aftercare which starts for client on 12/29/19 and goes once a week for 12 weeks. Discharge Handout: Complete Discharge Handout with client on aftercare options and continuity of care.
== END 2019-12-15 15:16 | disposition home or self-care (01) ==
LOC: BHIOP 09:00
PROVIDERS: PCP Nurse Practitioner Family; Referring Provider Psychiatry & Neurology Psychiatry; Visit Provider Psychiatry & Neurology Psychiatry
DX: F31.81 Bipolar II disorder (principal); F41.1 Generalized anxiety disorder; F43.10 Post-traumatic stress disorder, unspecified
CPT/HCPCS: H0035; 90832; 90834; 90853

== ENCOUNTER 2019-12-29 14:00 | Outpatient (RCR) | payer OTHER, SELFPAY ==
[2018-10-25 07:34] VITALS: BMI 32.7
--- NOTE | 2019-12-29 16:25 | BH.MTP_ITS ---
Master Treatment Plan - Patient Information Program Physician:: Dr. Kaitlin Ferrer Primary Therapist:: Tess Cuevas - Psychiatric Diagnoses Psychiatric Diagnoses:: Bipolar 2 disorder, most recent episode hypomanic or mixed F 31.81; generalized anxiety disorder; history of PTSD Diagnosis Code(s):: F 31.81 - Estimated LOS Estimated LOS (in weeks):: 12 Problem/Goal #1 - Problem/Goal #1 Stated Goal:: client will maintain or see a reduction in symptoms AEB client score on the DSM 5 cross-cutting measure and improve client's daily functioning. - Objectives Objective #1 Stated Objective: Client will continue to consistently apply healthy coping skills to maintain progress made in IOP tx. Interventions: Through group therapy, client will review warning signs and triggers as well as healthy coping skills learned in IOP tx to successfully amanda ntain gains while transitioning into outpatient therapy. Discharge Criteria: Client will have accomplished this goal when client's score on the DSM-5 cross-cutting measure has either maintained or reduced over a 12 week period. Target Date: 03/22/20 Review Date: 01/26/20 Status: open Objective #2 Stated Objective: Client will learn and utilize 2-3 maintenance strategies to prevent decompensation. Interventions: Through group therapy, client will be provided with education on healthy maintenance behaviors, relapse prevention techniques, and healthy coping strategies. Discharge Criteria: Client will have accomplised this goal when can report using at least 2 maintenance skills to prevent decompensation. Target Date: 03/22/20 Review Date: 01/26/20 Status: open
== END 2020-01-02 23:59 ==
LOC: BHOG 14:00
PROVIDERS: PCP Nurse Practitioner Family; Referring Provider Psychiatry & Neurology Psychiatry; Visit Provider Psychiatry & Neurology Psychiatry
DX: F31.81 Bipolar II disorder (principal); F41.8 Other specified anxiety disorders; F43.10 Post-traumatic stress disorder, unspecified
CPT/HCPCS: 90853

== ENCOUNTER 2020-01-05 14:00 | Outpatient (RCR) | payer OTHER, SELFPAY ==
[2018-10-25 07:34] VITALS: BMI 32.7
--- NOTE | 2020-01-05 14:00 | BH.SGPN.GN ---
This psychotherapy group was provided via telehealth using two-way, real-time interactive telecommunication technology between the patients and the provider.?The interactive telecommunication technology included audio and video.? ?The patient was offered telemedicine as an option for care delivery during the COVID-19 pandemic and consented to this option. ?Patient location: [place] ?Provider located at [facility] Behaviors/Verbalizations/Mental Status: []Client alert and oriented, neatly dressed and groomed-wearing makeup. Eye contact fair. Motor activity appropriate. Speech within normal limits. Affect constricted, mood anxious and agitated. Thoughts linear, logical, no signs of hallucinations or delusions. Client Response/Progress/Benefit: []Client responded well to session, checking in using GAPS. Client?s emotion today is ?overwhelmed? and stated she had a stressful week last week. Client shared she had to miss work because of migraines and then went on a shopping trip that she ?kind of regrets.? Client receptive to normalizing how one can still be making progress despite setbacks. Client reported multiple wins despite setbacks as client continues to have less panic and she is thought challenging. Client followed her gameplan of focusing on progress not perfection. Client has also been using self-talk, self-care, and thought challenging to manage mood. Receptive of discussion on self-talk and its influence in maintaining long-term mental health stability. Client shared personal benefits of practicing affirmations such as more self-compassion. Provided strategies for improving effective creation and application of believable personal affirmations. Client wrote out two affirmation statements to put on her mirror. Statements were ?it?s okay to have a bad moment? and ?it?s okay to take time for myself.? Progress noted in client?s ability to bounce back after recent setbacks. Client to continue aftercare group to promote gains and further increase application of healthy coping skills. Narrative Note: []
--- NOTE | 2020-01-26 09:18 | BH.MTP_ITS ---
Treatment Plan Review Date of Admission:: 12/29/19 Date of Treatment Plan Review:: 01/26/20 Admitting Diagnoses:: Bipolar 2 disorder, most recent episode hypomanic or mixed F 31.81; generalized anxiety disorder; history of PTSD Current Diagnoses:: Bipolar 2 disorder, most recent episode hypomanic or mixed F 31.81; generalized anxiety disorder; history of PTSD Patient's Response to Treatment:: Pt has responded somewhat well to treatment, though has reported struggling significantly since discharging from IOP tx. Pt reports that this has been due to adjusting to a recent move, new job, as well as discovering that her father has been given a cancer diagnosis. Pt recently lost her mother to cancer earlier this year and reports the news of her father?s health has been a significant trigger for her depression and anxiety. Pt attributes these stressors to her inconsistent attendance and engagement in the treatment setting as well. Despite experiencing these stressors, pt reports she has recently been able to begin reimplementing the skills she had learned in IOP treatment and has encouraged herself to reach out as well as apply more self- care skills to prevent herself from further decompensation. Pt additionally stated that she is continuing to work on setting healthy boundaries with herself and her supports, practicing thought challenging and use of affirmations, as well as practicing mindfulness to better regulate her emotions. Status of Current Problems and Symptoms: Pt reports struggling with ongoing anxiety and depression since discharging from IOP tx. Pt reports that although her symptoms have increased, she feels she has been able to more quickly recognize her decompensation and reach out for support than she would have in the past. Reports doing well to challenge herself not to catastrophize and is more actively applying positive self-talk statements in moments of increased stress. Pt continues to have some difficulties in managing stress in the moment, but has been working on doing better with using calming and mindfulness skills to manage her emotions in these moments as well as apply thought challenging skills. Problem #1 Problem Name:: Pt will maintain or see a reduction in mental health symptoms Status of Goals:: Obj 1 ? Pt self-reports difficulties in consistent application of healthy coping skills since IOP d/c. Recently reports struggling with decompensation in sx due to several new stressors; however, pt reports improved ability to catch he decompensation prior to further sx escalation. Pt has a hx of self-sabotaging and isolation, she reports challenging herself to reach out to supports rather than fall back into unhealthy means of coping as she may have struggled with in the past. She reports that she has been trying to implement self-care skills and reach out to supports to better manage her depressive sx as they occur, but at times struggles with effectively doing so. Obj 2 - Pt is able to verbalize at least 2 of the maintenance skills and is at times applying skills but struggles with consistency. Team Recommendations:: Team recommends pt continue IOP aftercare group in addition to attending regular outpatient counseling in order to decrease depressive and anxious symptoms as well as prevent further decompensation.
--- NOTE | 2020-01-26 14:00 | BH.SGPN.GN ---
This psychotherapy group was provided via telehealth using two-way, real-time interactive telecommunication technology between the patients and the provider.?The interactive telecommunication technology included audio and video.? ?The patient was offered telemedicine as an option for care delivery during the COVID-19 pandemic and consented to this option. ?Patient location: [place] ?Provider located at [facility] Behaviors/Verbalizations/Mental Status: []Client alert and oriented, casual appearance. Eye contact fair. Motor activity appropriate. Speech within normal limits. Affect congruent, mood anxious. Thoughts linear, logical, no signs of hallucinations or delusions. Client Response/Progress/Benefit: []Client responded well to session, engaged throughout. Client reviewed her GAPs and shared ?it?s been crazy? stating current stressors which included interpersonal conflict with her roommates and worrying about her father?s health. Client reports in the past week she has been setting boundaries, thought challenging, and establishing new supports. Client participated in the group discussion of maintenance and the benefits of creating a maintenance plan. Client contributed as the group discussed what components make up a maintenance plan. Client created her own maintenance plan for depression and anxiety. Client identified warning signs which included: ?random sadness,? zoning out, and negative thinking. Client's coping skills included: ASMR, deep breathing, meditation, and talking with a healthy support. Appeared to benefit from creating a maintenance plan to promote gains and prevent setbacks. Will continue aftercare next week. Narrative Note: []
== END 2020-02-01 23:59 ==
LOC: BHOG 14:00
PROVIDERS: PCP Nurse Practitioner Family; Referring Provider Psychiatry & Neurology Psychiatry; Visit Provider Psychiatry & Neurology Psychiatry
DX: F31.81 Bipolar II disorder (principal); F41.1 Generalized anxiety disorder; F43.10 Post-traumatic stress disorder, unspecified
CPT/HCPCS: 90853

== ENCOUNTER 2020-02-02 14:06 | Outpatient (RCR) | payer OTHER, SELFPAY ==
[2018-10-25 07:34] VITALS: BMI 32.7
--- NOTE | 2020-02-02 14:05 | BH.SGPN.GN ---
Addendum entered and electronically signed by Nieves Henderson LSW 02/03/20 12:15: This psychotherapy group was provided via telehealth using two-way, real-time interactive telecommunication technology between the patients and the provider. The interactive telecommunication technology included audio and video. The patient was offered telemedicine as an option for care delivery during the COVID-19 pandemic and consented to this option. Patient location: [place] Provider located at [facility] Original Note: Behaviors/Verbalizations/Mental Status: []Client alert and oriented, casually dressed and groomed. Eye contact good. Motor activity appropriate, at times appearing restless. Speech within normal limits, more rapid than usual. Affect congruent, mood euthymic. Thoughts linear, logical, no signs of hallucinations or delusions. Client Response/Progress/Benefit: [] Pt responded well to session, provided some input and listened attentively to peers though at times appeared distracted by own thoughts/environment. Reported feeling ?hyper? today and attributed this to feeling hypomanic. Discussed working with her outpatient therapist on a coping plan and indicated maintaining structure in her daily routine would be most helpful. Discussed feeling she is doing well to continue reaching out to supports and applying self-care strategies. Pt engaged in discussion on self-advocacy. Worked with group to identify the benefits of self-advocacy, as well as common barriers. Identified a personal barrier as struggling with thoughts that other?s needs are more pressing or important than hers. Worked with group to identify strategies to increase ability to advocate for oneself. Pt reported she wants to work on reminding herself of the importance of prioritizing her own needs and that it doesn?t make her a burden. Pt seemed to benefit from reviewing treatment progress and skill application, as well as learning about how to increase self-advocacy. Pt to continue aftercare program to continue to promote mood stability, continue use of self-accountability in maintaining healthy coping, and prevent decompensation. Narrative Note: []
--- NOTE | 2020-02-16 14:00 | BH.SGPN.GN ---
This psychotherapy group was provided via telehealth using two-way, real-time interactive telecommunication technology between the patients and the provider.?The interactive telecommunication technology included audio and video.? ?The patient was offered telemedicine as an option for care delivery during the COVID-19 pandemic and consented to this option. ?Patient location: [place] ?Provider located at [facility] Behaviors/Verbalizations/Mental Status: []Client alert and oriented, disheveled appearance. Eye contact fair. Motor activity appropriate. Speech within normal limits. Affect flat, mood dysthymic and anxious. Thoughts linear, logical, no signs of hallucinations or delusions. Client Response/Progress/Benefit: []Client responded well to session, actively contributing. Client stated she has not been doing well recently sharing feeling ?really depressed.? Client quit her job and has been struggling with negative thinking and completing ADLs. Client reported feeling grateful for her boyfriend as he has been a positive support and encourager during this time. Client has been using thought challenging and opposite action to cope with symptoms and stressors this week. Client contributed to the discussion on gratitude and its benefits. Client attentive during discussion of internal vs. external gratitude. Client receptive to participating in the group seven-day gratitude challenge. Client selected one gratitude reflection per day and stated she will implement this through writing. Receptive to discussion on intentionality and self-accountability. Client shared she will hold herself accountable by doing this before bed each night. Appeared to benefit from connecting with peers and practicing gratitude. Therapist will discuss client?s decompensation with tx team as client could benefit from higher level of care. Narrative Note: []
--- NOTE | 2020-02-23 18:23 | BH.DS ---
Discharge Summary - Demographics Date of Admission:: 12/29/19 Discharge Date: 02/23/20 Presenting Problems at Admission:: Client discharged from [facility] of care 12/15/19. At admission client reported mild to moderate symptoms of depression and anxiety. Client continues to struggle with managing stress of moving, relationships and starting a new job. Discharge Diagnoses:: Bipolar 2 disorder, most recent episode hypomanic or mixed F 31.81; generalized anxiety disorder; history of PTSD Reason for Discharge:: Client has been showing increased difficulty managing emotions, low motivation, increased depressive and anxious symptoms and quit her job due to not being able to manage her stress. Client will discharge from aftercare and readmit into [facility] due to once a week group counseling and once a week indiviudal therapy not being effective. - Treatment Progress During Treatment & Response: Progress minimal during aftercare AEB pt showing decompensation throughout. pt consistently attended aftercare sessions but struggled wtih application of skills outside treatment environment. Issues Still to be Addressed:: Pt could benefiit from reinforcment of healthy coping skills, improved ability to manage stressors, management of bipolar symptoms, and boundary setting. Client can also benefit from ongoing work on challenging distortions and increasing self-compassion. Discharge Recommendations/Instructions:: Pt is to discharge from aftercare group today and will start [facility] on 02/29/20. Discharge Handout: Complete Discharge Handout with client on aftercare options and continuity of care.
== END 2020-03-03 23:59 ==
LOC: BHOG 14:06
PROVIDERS: PCP Nurse Practitioner Family; Referring Provider Psychiatry & Neurology Psychiatry; Visit Provider Psychiatry & Neurology Psychiatry
DX: F31.81 Bipolar II disorder (principal); F41.1 Generalized anxiety disorder; F43.10 Post-traumatic stress disorder, unspecified
CPT/HCPCS: 90853

== ENCOUNTER 2020-02-29 09:00 | Outpatient (RCR) | payer OTHER, SELFPAY ==
[2018-10-25 07:34] VITALS: BMI 32.7
--- NOTE | 2020-02-29 09:02 | BH.SGPN.GN ---
Behaviors/Verbalizations/Mental Status: []Client alert and oriented, disheveled appearance. Eye contact good. Motor activity appropriate. Speech within normal limits. Affect constricted, mood depressed. Thoughts linear, logical, no signs of hallucinations or delusions. Reviewed client?s symptom tracker, no risk for suicidal ideation, plan, or intent as of 02/29/20. Client Response/Progress/Benefit: []Client responded well to session, receptive to feedback and encouraging others. Client reports feeling anxious this morning. Client shared she had previously completed IOP and returned because client has experienced numerous life stressors that have triggered a depressive episode. Client stated her goals are to improve her moods, not hate myself, and to gain more confidence in her abilities. Client reported she used opposite action this morning and shared feeling glad to have her boyfriend for support. Appeared to benefit from connecting with peers and gaining support. Will continue IOP tx to prevent decompensation of depressive symptoms, improve emotional regulation skills, and reduce negative thoughts. Narrative Note: []
--- NOTE | 2020-02-29 10:42 | BH.NA ---
Physical Data - Vital Signs Pulse Rate: 77 Blood Pressure: 121/85 - Height/Weight Height: 1.55 m Weight:: 86.183 kg Weight in Pounds: 190.0 lbs Current Medication Compliance - Medication Compliance Do you take your medication as prescribed?: Yes Nutritional History - Appetite Nutritional Instructions:: If client shows signs of a swallowing problem, weight change of 10 pounds or more in the last month, or is on a diabetic diet, the physician will review and request a dietitian consult, as appropriate. All unintentional weight loss will be referred to the physician for decision on need for dietitian consult. Describe your appetite:: Fair Additional nutritional information:: Client reports recent decrease in appetite, but does report she is trying to lose weight. Functional Assessment - Sleep Pattern Describe any problems with sleeping: Client states her sleep varies, stating she sleeps very little or too much usually. States she averages about 6 hours. Client states she has nightmares about 3 times per week. - Activities Motor Activity:: Functional Sensory/Communication Assess - Communication Problems Do you have difficulty understanding what people are saying?: No Medical Problems/History - Neurological Conditions Neurological: Headaches, Other (See comments) Comments:: diagnosed with epilepsy in the past, has not had a seizure in about 3 years and not on medication. - Gastrointestinal Conditions Gastrointestinal: Other (See comments) Comments:: lymphocytic colitis - Family History Family History: Family History (Last Reviewed 10/25/18 @ 07:12 by Jaylin Kilgore) Other Diabetes Seizures Surgical History - Surgical History Have you had any surgeries? If so, list type and date:: Yes - wisdom teeth Substance Abuse - Substance Abuse Please describe substance abuse in the last 30 days:: Client denies alcohol, tobacco or substance use. Client states she does not consume more than 40mg of caffiene per day do to her colitis and anxiety. Mental Status Summary - Mental Status Significant Findings/Observations on Appearance and Mood:: Client is alert and oriented x4. Client is casually groomed. Client is wearing a mask due to COVID19 pandemic. Client is cooperative with assessment. Client's voice normal rate. Client makes logical associations. Client denies delusions/hallucinations. Client states fleeting intrusive SI with no plan. Suicide Assessment - Suicidal Ideation Are you currently or have you been suicidal in the past?: Yes - fleeting SI at times, no plan Suicidal Intentional Rating Scale (SIRS): Current suicidal thoughts/No plan/Contracts for safety Physician Notification: If Active suicidal thoughts/Will not contract for safety is checked, contact physician and document in the Physician Notification section below. Past Psychiatric History - MH Treatment Hx Past Psychiatric Medications:: Celexa, Lexapro, Prozac, Zoloft, Buspar Age of first mental health symptoms: Client states she was diagnosed with anxiety and depression in 2013. Client states she was diagnosed bipolar when she was in IOP program 10/2019. Current providers for mental health treatment (counselor, psychiatrist, showcase maker, etc.): Darrion Doyle for psychiatry at [facility] and therapy at [facility]. Fall Risk Assessment - Age Age: Less than 60 - Mental Status Mental Status: Willing & able to ask for assistance when needed - Physical Status Physical Status: No problems - Impairments Impairments: None - Elimination Elimination: Continent AND independent - Gait or Balance Gait or Balance: Walks independently - Hx of Falls History of falls in the past 6 months: No known history - Medications/Substances Psychotropics:: Mood stabilizers, Antihistamines (e.g. Benadryl) Medications/substances used within the past 24 hours or ordered to administer: 3 or more of the medications/substances listed above - Total Score Total Points:: 2 RN Summary of Impressions - Impressions Recommendations: Include psychiatric and medical issues, treatment planning recommendations, and discharge planning needs. Impressions: Psychiatric Issues: bipolar 2 disorder, most recent episode depressed. Generalized anxiety disorder. PTSD. - Level of Care How do the client's current symptoms and functional deficits support need for this level of care?: Client states she has been struggling with mental health since finishing IOP program in December. Client states after she finished the program, she became depressed. Client states she recently quit her job due to anxiety, stating she doesn't feel like she can keep a job due to her anxiety and panic attacks. Client states she has panic attacks 3-4 times per week, stating symptoms include increased heartrate, crying, shaking, tunnel vision and hyperventilating. Client endorses crying spells, erratic sleep, worthlessness, and anxiety. IOP will promote gains and prevent further decompensation while providing social support and skills training.
--- NOTE | 2020-02-29 11:20 | BH.SGPN.GN ---
Behaviors/Verbalizations/Mental Status: [] Client alert and oriented, casually dressed and groomed. Eye contact good. Motor activity appropriate. Speech within normal limits. Affect congruent, mood anxious and dysthymic. Thoughts linear, logical, no signs of hallucinations or delusions Client Response/Progress/Benefit: [] Client responded well to session, actively engaged and providing input throughout. Client contributed as the group discussed the different categories of coping skills which included distraction, emotional release, grounding, self-love, and thought challenging. She provided examples for each category and reported that for her grounding and self-love can be the most challenging. Client participated in creating a coping skills ?menu? for the five categories of coping skills. Client's coping skill menu included: coloring, listening or writing music, going for walks, as well as reaching out to supports. Shared wanting to focus on more active application of healthy emotional release skills by making time to journal and color when feeling upset. Client appeared to benefit from increasing repertoire of healthy coping skills. Client progress limited as it is her first day in IOP group. Will continue tx to further improve mood stability, develop a more healthy coping repertoire, and prevent decompensation. Narrative Note: []
[2020-02-29 11:45] VITALS: BP 121/85; PULSE 77
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
--- NOTE | 2020-02-29 13:27 | BH.PSY.EVA_ITS ---
Initial Treatment Plan - Patient Information Visit Information: ADMISSION DATE: EXPECTED LOS: 4-6 weeks - Problems/Symptoms Problem #1:: Depression Symptom:: Sadness, hopelessness, worthlessness, passsive suicideal ideation, ru mination, fatigue, anhedonia Problem #2:: Anxiety Symptom:: Worry, panic attacks, avoidance, flashbacks
--- NOTE | 2020-03-02 09:05 | BH.SGPN.GN ---
Behaviors/Verbalizations/Mental Status: []Client alert and oriented, casually dressed. Eye contact good. Motor activity appropriate. Speech within normal limits. Affect unable to gather due to wearing a mask for COVID-19 protocol, mood dysthymic. Thoughts linear, logical, no signs of hallucinations or delusions. Reviewed client?s symptom tracker, no risk or plan for suicide ideation as of 03/02/20. Client Response/Progress/Benefit: []Client responded well to group, engaged and participated throughout discussion. Client expressed feeling embarrassed as she has spent most of her rent money on other things while shopping. Client shared she is experiencing many ups and downs and stated she is having a mixed episode. Client reported her self confidence has decreased and has many negative thoughts. Client recognized a positive as getting accepted into college and client looks forward to starting next semester. Client benefited from group as client gained positive feedback from other group members to help problem solve, limit access to spending money, and reframe negative thoughts. Client will continue IOP to improve daily functioning, reduce impulsivity, and increase the use of healthy coping skills. Narrative Note: []
--- NOTE | 2020-03-02 10:20 | BH.SGPN.GN ---
Behaviors/Verbalizations/Mental Status: [] Client alert and oriented, casual dress, hygiene fair. Eye contact good. Motor activity appropriate. Speech within normal limits. Affect congruent. Mood anxious, depressed. Thoughts linear, logical, no signs of hallucinations or delusions. Client Response/Progress/Benefit: [] Pt receptive of session AEB taking notes, remaining attentive, and providing input during discussion on resilience. Pt expressed connecting to the topic of resilience, indicating that when faced with a crisis she often struggles to implement resilience skills and instead will avoid or isolate herself until she experiences ?breakdown?. Pt contributed during discussion of the costs of resisting change and the benefits of adapting to adversity. Share that for her resisting change has resulted in continuing to be stuck as well as reinforcing depressive sx. Group identified costs of resisting change to include: staying stuck, difficulty managing crises, not seeing opportunities to improve current situation, and decrease in self-care. Attentive during psychoeducation on various granados factors in developing personal resilience, noting that maintaining a resilient mindset can be particularly difficult after facing a failure. Pt seemed to benefit from increasing awareness of strategies to increase personal resilience and the impacts of resilience on managing mental health sx. Progress continues to be impacted by pt difficulties in consistently applying healthy coping and thought challenging skills. Will continue IOP tx to promote the use of thought challenge skills, further improve emotion regulation, and prevent decompensation. Narrative Note: []
== END 2020-03-03 23:59 ==
LOC: BHIOP 09:00
PROVIDERS: PCP Nurse Practitioner Family; Referring Provider Psychiatry & Neurology Psychiatry; Visit Provider Psychiatry & Neurology Psychiatry
DX: F31.9 Bipolar disorder, unspecified (principal); F41.8 Other specified anxiety disorders; F43.10 Post-traumatic stress disorder, unspecified; Z79.899 Other long term (current) drug therapy; G43.909 Migraine, unspecified, not intractable, without status migrainosus
CPT/HCPCS: H0035; 90853

== ENCOUNTER 2020-03-06 09:00 | Outpatient (RCR) | payer OTHER, SELFPAY ==
[2018-10-25 07:34] VITALS: BMI 32.7
[2020-03-04 00:42] VITALS: BP 121/85; PULSE 77
--- NOTE | 2020-03-06 09:05 | BH.SGPN.GN ---
This psychotherapy group was provided via telehealth using two-way, real-time interactive telecommunication technology between the patients and the provider.?The interactive telecommunication technology included audio and video.? ?The patient was offered telemedicine as an option for care delivery during the COVID-19 pandemic and consented to this option. ?Patient location: [place] ?Provider located at [facility] Behaviors/Verbalizations/Mental Status: []Client alert and oriented, neatly dressed and groomed. Eye contact good. Motor activity appropriate. Speech within normal limits. Affect constricted, mood anxious. Thoughts linear, logical, no signs of hallucinations or delusions. Reviewed client?s symptom tracker, no risk for suicidal ideation, plan, or intent as of 03/06/20. Client Response/Progress/Benefit: []Client responded well to session, giving supportive feedback. Client reports a mix of emotions this morning sharing, I feel anxious, content, and excited. Client stated her weekend was really wild as client moved out of her old apartment were client felt the environment was toxic. Client stated it was hard, but client advocated for herself and other supports provided client with reassurance. Client reports she has to quarantine due to being exposed to someone with COVID. Client shared she has been using coloring, word searches, opposite action, and studying to manage emotions over the weekend. Appeared to benefit from connecting with peers and reflecting on self-advocacy. Will continue IOP tx to prevent decompensation of mood symptoms and to improve emotional regulation skills. Narrative Note: []
--- NOTE | 2020-03-06 11:19 | BH.SGPN.GN ---
This psychotherapy group was provided via telehealth using two-way, real-time interactive telecommunication technology between the patients and the provider. The interactive telecommunication technology included audio and video. The patient was offered telemedicine as an option for care delivery during the COVID-19 pandemic and consented to this option. Patient location: [place] Provider located at [facility] Behaviors/Verbalizations/Mental Status: [] Client alert and oriented, casual dress, hygiene tended to. Eye contact fair to good. Motor activity appropriate, at times appearing restless. speech and tone WNL. Affect congruent. mood anxious, dysthymic. Thoughts linear, logical, no signs of hallucinations or delusions. Client Response/Progress/Benefit: []Client engaged in session AEB listening to and providing input throughout discussion as well as taking notes. Client identified avoidance, not asking for help/isolating, rumination, and negative and distorted thoughts are behaviors she engages in that keeps her stuck from moving forward. Client attentive during psychoeducation about problem solving protocol. Client did well to work with the group to brainstorm strategies to promote making progress towards their desired chapter. Identified wanting to work on addressing current barrier of intrusive thoughts which reinforce anxiety and depression. Shared one thing she can do to move forward is to begin identifying her intrusive thoughts/distortions and writing them down so that she can more easily challenge these thoughts. Appeared to benefit from increased insight regarding her current ?Chapter? in life and reviewing strategies for promoting continued progress and prevent regression. Progress noted in self-report of improved use of thought challenge skills though continues to struggle with significant negative thoughts reinforcing depression and anxiety. Will continue IOP tx to prevent decompensation, challenge distorted thoughts and increase healthy coping. Narrative Note: []
--- NOTE | 2020-03-06 15:08 | BH.MDN_ITS ---
Multi-Disciplinary Note - Note 30-min Individual Time Started:: 10:40 Date: 03/06/20 Purpose of session/treatment goals addressed:: The purpose of this session was to address current mood, symptoms, and triggers. Another goal was to identify strategies to promote impulse control. Symptoms/Behavior:: This counseling session was provided via telehealth using two-way, real-time interactive telecommunication technology between the patient and the clinician. The interactive telecommunication technology included audio and video. The patient was offered telehealth as an option for care delivery during the COVID-19 pandemic and consented to this option. Patient location: [place]. Provider located at [facility] Eye Contact:: Good Motor Activity:: Appropriate Appearance:: Casual Speech:: Rambling, Rapid Mood:: Anxious, Dysthymic Affect:: Congruent Thoughts:: Racing, No evidence of hallucinations/delusions noted Staff Interventions:: Used active listening and thought challenging. Problem- solved strategies to increase impulse control. Provided psychoeducation on intrusive thoughts. Client Response:: Client responded well to session, open to meeting with therapist. Client reports ongoing stressors with her family, living situation, and COVID. Client stated she is ruminating due to recent impulsive spending. Client receptive to coming up with strategies to increase impulse control. Ideas included: only using hardy, giving her debit card to her father, writing out the consequences of spending money, getting an automatic savings account, and removing credit card info from the internet. Client also receptive to psychoeducation on intrusive thinking and skills client can use to manage ruminations. Client will work on self-care and thought challenging this week. Risks/Concerns:: Client reports recent impulsive spending. Denies any suicidal ideations, plans, or intent as of 03/06/20. Willing to implement strategies to reduce impulsive spending. Progress Toward Goals/Plan:: Client has been attentive and active in group and individual sessions. Client has been working on increasing self-care and making healthier decisions. Client continues to endorse mood instability, lack of motivation, crying spells, negative thinking, and difficulty concentrating. Will continue IOP tx to prevent decompensation, reinforce healthy coping skills, and improve daily functioning. Time Stopped:: 11:10
--- NOTE | 2020-03-06 15:10 | BH.MTP ---
[facility] Treatment Plan - Patient Information Program Physician:: Dr. Kaitlin Ferrer Primary Therapist:: Tess Cuevas - Psychiatric Diagnoses Psychiatric Diagnoses:: Bipolar 2 disorder, most recent episode depressed F 31.81; generalized anxiety disorder; history of PTSD Diagnosis Code(s):: F 31.81 - Estimated LOS Estimated LOS (in weeks):: 6 Problem/Goal #1 - Problem/Goal #1 Stated Goal:: Client will increase mood stability, reduce depression, and reduce negative self-talk due to Bipolar disorder through the Intensive Outpatient Program. Description of Barriers: Multiple stressors, inconsistent support systems, difficulty keeping a job, negative self-talk, and difficulty setting boundaries. Functional Impact: Client is a 19-year-old female with a history of bipolar II disorder, PTSD, and anxiety. Client participated in [facility] from 10/18/19-12/15/19 and referred herself back to [facility] due to numerous psychosocial stressors worsening client's mental health. Stressors include toxic living environment, father's cancer diagnosis, and quitting her job. Client reports decompensation of depressive symptoms and increased impulse behaviors over the past two months. Client endorses a depressed mood, crying spells, lack of energy, lack of motivation, intrusive suicidal ideations, worthlessness, and lack of appetite. Client also reports daily anxiety, panic attacks, and inability to concentrate. Client has not been functioning at her baseline as client reports poor self-care and isolative behaviors. Client's symptoms are impacting her relationships and overall functioning. Goal Relevant Strengths/Supports: Client presents as a motivated, intelligent, and kind young woman who wants to improve her mental health. Client has been through many hardships in her life, but she continues to demonstrate resilience and a positive attitude. Client has knowledge of healthy coping skills and is connecting with outpatient mental health providers. - Objectives Objective #1 Stated Objective: Client will identify at least 2-3 negative self-talk messages used to reinforce negative core beliefs and replace thoughts with positive, realistic messages. Interventions: Therapist will help client identify distorted, negative beliefs about self and replace with more realistic, affirmative messages. Therapist will use CBT to help client increase insight to the connection between thoughts, emotions, and behaviors. Therapist will also use dialectical thinking to help client combat all or nothing expectations. Therapist will encourage client to practice thought challenging. Discharge Criteria: Client will have achieved this goal when can verbalize at least 2 negative self-talk messages and effectively replace those thoughts with affirmative messages. Target Date: 04/11/20 Review Date: 03/30/20 Status: open Objective #2 Stated Objective: Client will set 2-3 small goals per week to promote behavioral activation. Interventions: Therapist will review SMART goal setting with client and encourage client to set small goals each day. Therapist will reinforce the benefits of opposite action and behavioral activation. Discharge Criteria: Client will have accomplished this goal when can report setting and accomplishing at least 2 small goals a week. Target Date: 04/11/20 Review Date: 03/30/20 Status: open Problem/Goal #2 - Problem/Goal #2 Stated Goal:: Client will increase emotional regulation and reduce intensity and duration of anxiety symptoms. Description of Barriers: Multiple stressors, inconsistent support systems, difficulty keeping a job, negative self-talk, and difficulty setting boundaries. Functional Impact: Client is a 19-year-old female with a history of bipolar II disorder, PTSD, and anxiety. Client participated in [facility] from 10/18/19-12/15/19 and referred herself back to [facility] due to numerous psychosocial stressors worsening client's mental health. Stressors include toxic living environment, father's cancer diagnosis, and quitting her job. Client reports decompensation of depressive symptoms and increased impulse behaviors over the past two months. Client endorses a depressed mood, crying spells, lack of energy, lack of motivation, intrusive suicidal ideations, worthlessness, and lack of appetite. Client also reports daily anxiety, panic attacks, and inability to concentrate. Client has not been functioning at her baseline as client reports poor self-care and isolative behaviors. Client's symptoms are impacting her relationships and overall functioning. Goal Relevant Strengths/Supports: Client presents as a motivated, intelligent, and kind young woman who wants to improve her mental health. Client has been through many hardships in her life, but she continues to demonstrate resilience and a positive attitude. Client has knowledge of healthy coping skills and is connecting with outpatient mental health providers. - Objectives Objective #1 Stated Objective: Client will identify 2-3 cognitive distortions that lead to rumination and learn 2-3 ways to manage these thoughts to better manage anxiety as shown by reduced DSM-5 scores for anxiety. Interventions: Therapist will provide education on the most common cognitive distortions and teach client the connection between thoughts, emotions, and feelings. Therapist will assist client in identifying, challenging, and replacing dysfunctional thoughts with positive, more realistic thoughts. Therapist will use CBT and DBT techniques to help client gain awareness of thinking errors and learn how to more effectively handle negative thoughts. Therapist will also use self-compassion to help client set more realistic expectations for herself. Discharge Criteria: Client will have accomplished this goal when can identify at least 2 cognitive distortions and at least 2 coping skills to manage negative thoughts. Target Date: 04/11/20 Review Date: 03/30/20 Status: open Objective #2 Stated Objective: Client will practice 2-3 self-care activities a week. Interventions: Therapist will review the different areas of self-care with client and have client select areas she would like to improve upon. Therapist will encourage client to set boundaries and practice self-compassion as forms of self-care. Discharge Criteria: Client will have met this goal when she can report practicing 2-3 self-care activities a week. Target Date: 04/11/20 Review Date: 03/30/20 Status: open
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
--- NOTE | 2020-03-08 09:00 | BH.SGPN.GN ---
This psychotherapy group was provided via telehealth using two-way, real-time interactive telecommunication technology between the patients and the provider. The interactive telecommunication technology included audio and video. The patient was offered telemedicine as an option for care delivery during the COVID-19 pandemic and consented to this option. Patient location: [place] Provider located at [facility] Behaviors/Verbalizations/Mental Status: []Client alert and oriented, casually dressed. Eye contact good. Motor activity appropriate. Speech within normal limits. Affect congruent, mood anxious. Thoughts linear, logical, no signs of hallucinations or delusions. Reviewed client?s symptom tracker, no risk or plan for suicide ideation as of 03/08/20. Client Response/Progress/Benefit: []Client responded well to group, engaged and participated throughout discussion. Client reported accomplishing her goal of challenging intrusive thoughts as she challenged the thoughts by fact checking, distracting herself with word searches, and refusing to ruminate. Client shared she tries to be productive in quarantine by cleaning and developing a healthy sleep schedule. Progress noted as client used healthy coping skills to complete goals. Client continues to struggle with regulating her emotions and can improve with challenging distortions. Client will continue IOP to improve mood and daily functioning, and increase the use of healthy coping skills. Narrative Note: []
--- NOTE | 2020-03-08 10:10 | BH.SGPN.GN ---
This psychotherapy group was provided via telehealth using two-way, real-time interactive telecommunication technology between the patients and the provider. The interactive telecommunication technology included audio and video. The patient was offered telemedicine as an option for care delivery during the COVID-19 pandemic and consented to this option. Patient location: [place] Provider located at [facility] Behaviors/Verbalizations/Mental Status: []Client alert and oriented, neatly dressed and groomed. Eye contact fair. Motor activity appropriate. Speech within normal limits. Affect constricted, mood anxious. Thoughts linear, logical, no signs of hallucinations or delusions. Client Response/Progress/Benefit: []Client was an active participant AEB contributing to discussion and participating in activity. Connected with the topic of pitfalls and helped the group discuss barriers that keep them from choosing a healthier path to mental wellness such as pitfalls. Group worked together to identify examples of personal pitfalls which included; isolation, low self-esteem, wanting to quit, increased negative distortions, increased hopelessness, feeling overwhelmed,increased anxiety and stress, and feeling of burnout. Client shared personal examples of pitfalls such as catastrophizing and increased anxiety. Engaged during the activity and took on a leadership role. Client shared that the ?right path? is difficult for her as she fears disappointing others. Client benefited from group as she communicated with other group members and took a leadership role to help control the activity. Client will continue IOP to improve mood, increase the use of healthy coping skills, and regulate emotions. Narrative Note: []
--- NOTE | 2020-03-08 11:11 | BH.SGPN.GN ---
Behaviors/Verbalizations/Mental Status: []Client alert and oriented, casual dress, hygiene tended to. Eye contact good. Motor activity appropriate. speech and tone WNL. Affect constricted, mood anxious and depressed. Thoughts linear, logical, no signs of hallucinations or delusions. Client Response/Progress/Benefit: []Client receptive of session, engaged throughout AEB providing input during activity and discussion, as well as taking notes throughout. Remained more passive than in prior groups however. Client actively listening as group made connections between skills used to overcome ?pitfalls? in activity and addressing own personal pitfalls impacting mental health. Completed a worksheet where she identified personal pitfalls impacting mental health progress. Identified pitfalls as: fear of the unknown, negative thoughts, anxiety, fear of disappointing others, fear of abandonment, and difficulties asking for help. Attentive and taking notes as group brainstormed strategies to overcome pitfalls. Client stated she wants address personal pitfall of difficulties regulating her emotions by starting a journal to help herself better process her own emotions/mood prior to reacting. Indicated that this would help in better explaining her emotions to supports as well. Benefited from identifying personal pitfalls and strategies to overcome these pitfalls. Progress continues to be limited as client reports ongoing difficulties in challenging negative thoughts which impact use of healthy coping skills learned. Client to continue IOP level of care to continue to promote healthy skill and thought challenge application, improve emotion regulation, and prevent decompensation. Narrative Note: []
--- NOTE | 2020-03-09 09:05 | BH.SGPN.GN ---
This psychotherapy group was provided via telehealth using two-way, real-time interactive telecommunication technology between the patients and the provider. The interactive telecommunication technology included audio and video. The patient was offered telemedicine as an option for care delivery during the COVID-19 pandemic and consented to this option. Patient location: [place] Provider located at [facility] Behaviors/Verbalizations/Mental Status: []Client alert and oriented, casual dress, hygiene tended to. Eye contact fair to good. Motor activity appropriate. Speech within normal limits.Affect congruent, mood anxious and dysthymic. Thoughts linear, logical, no signs of hallucinations or delusions. Appearing distracted by own thoughts at times. Reviewed client?s symptom tracker, pt denies current suicidal thoughts or intention to date. Client Response/Progress/Benefit: [] Patient responded well to session AEB actively listening, providing supportive feedback, and willing to share thoughts and feelings with group. Patient stated emotion today as ?frustrated? which she attributed to ongoing difficulties in managing her anxiety. She explained that her anxiety has felt progressively worse the past several days and that she has been struggling to manage her symptoms before they escalate as a result. Discussed that yesterday she had become so anxious while shopping with a friend that she became physically ill. Pt noted that although this felt like a setback, she did well to remind herself that one panic attack did not have to ruin the rest of her day. Shared trying to focus on positives and spend time with supports which improved her mood in the moment. Expressed wanting to gain more insight on how she can better prevent escalating to point of crisis in the future. Pt receptive of and appeared to benefit from supportive feedback and suggestions provided by the group. Recommended continued IOP treatment to further promote application of self-soothing skills, continue to work on depression and anxiety management, as well as prevent decompensation. Narrative Note: []
--- NOTE | 2020-03-09 10:18 | BH.SGPN.GN ---
This psychotherapy group was provided via telehealth using two-way, real-time interactive telecommunication technology between the patients and the provider.?The interactive telecommunication technology included audio and video.? ?The patient was offered telemedicine as an option for care delivery during the COVID-19 pandemic and consented to this option. ?Patient location: [place] ?Provider located at [facility] Behaviors/Verbalizations/Mental Status: []Client alert and oriented, casually dressed and groomed. Eye contact good. Motor activity appropriate. Speech within normal limits. Affect constricted, mood anxious and dysthymic. Thoughts linear, logical, no signs of hallucinations or delusions. Client Response/Progress/Benefit: []Client active participant as shown by active listening and participating in small group discussion. Client contributed to the discussion of self-care and the consequences of not practicing self-care. Client agreed with peers that it is important to practice self-care, but they all struggle with through. Group discussed consequences of not practicing self-care such as: poor physical health, poor work performance, and poor emotional regulation. Client participated in the discussion of the common myths about self-care. Client participated in the discussion on debunking of these myths. Client gave an example and shared ?people tell you to just suck it up, there?s more important things? Client?s group challenged the myths that self-care means a person is weak and self-care in unnecessary. Client seemed to benefit from increased awareness of the importance of self-care and challenging common myths that prevent practicing self-care. Will continue IOP tx to prevent decompensation of mood symptoms and to challenge distortions. Narrative Note: []
--- NOTE | 2020-03-13 09:02 | BH.SGPN.GN ---
This psychotherapy group was provided via telehealth using two-way, real-time interactive telecommunication technology between the patients and the provider.?The interactive telecommunication technology included audio and video.? ?The patient was offered telemedicine as an option for care delivery during the COVID-19 pandemic and consented to this option. ?Patient location: [place] ?Provider located at [facility] Behaviors/Verbalizations/Mental Status: []Client alert and oriented, casually dressed and groomed. Eye contact good. Motor activity appropriate. Speech within normal limits. Affect incongruent-laughing but reporting numerous stressors, mood overwhelmed. Thoughts linear, logical, no signs of hallucinations or delusions. Reviewed client?s symptom tracker, no risk for suicidal ideation, plan, or intent as of 03/13/20. Client Response/Progress/Benefit: []Client responded well to session, providing supportive statements to peers. Client reports feeling stressed this morning. Client shared there have been a lot of family stressors, including client's grandmother passing away this weekend. Client stated despite having stressors, client reports belief she is actually coping well. Client shared she moved out of her old apartment, has not impulsively spent money, and has been practicing thought challenging with the help of her boyfriend. Appeared to benefit from identifying what client can do to respond to stress in healthy ways. Will continue IOP tx to reinforce healthy coping skills and improve emotional regulation skills. Narrative Note: []
--- NOTE | 2020-03-14 10:20 | BH.SGPN.GN ---
This psychotherapy group was provided via telehealth using two-way, real-time interactive telecommunication technology between the patients and the provider. The interactive telecommunication technology included audio and video. The patient was offered telemedicine as an option for care delivery during the COVID-19 pandemic and consented to this option. Patient location: [place] Provider located at [facility] Behaviors/Verbalizations/Mental Status: []Client alert and oriented, casually dressed and groomed. Eye contact good. Motor activity appropriate. Speech within normal limits. Affect congruent, mood dysthymic, anxious. Thoughts linear, logical, no signs of hallucinations or delusions. Client Response/Progress/Benefit: [] Client active participant in group AEB providing input on topic, as well as listening attentively to peers. Group worked together to identify barriers to taking action in their lives which included fear of being seen as broken, lack of resources, comfort zone, fear of the unknown, feeling out of control, and self-stigma. Expressed connecting with fear, wanting to avoid/isolate, and anxiety provoking thoughts as personal barriers. Group identified that taking action can help benefit mental health by: helping to better engage in daily living, feeling more ?authentic?, setting a healthy example for others, and improving self-confidence. Client identified personal areas to take back control over in life to include: anxiety, intrusive thoughts, PTSD, poor boundaries, and feeling lost/lack of identity. Client shared that if she could take control over these things, she would feel less anxious and better capable of managing mental health sx. Benefited from increased awareness of personal areas client wants to improve and benefits to taking action towards mental wellness. Will continue IOP tx to prevent decompensation, continue to promote application of skills for reduced anxiety, and increase use of internal coping skills. Narrative Note: []
--- NOTE | 2020-03-14 15:04 | BH.MDN_ITS ---
Multi-Disciplinary Note - Note 45-min Individual Time Started:: 09:15 Date: 03/14/20 Purpose of session/treatment goals addressed:: The purpose of this session was to work on goal #1 objective #2 and Goal #2 objective #2 in client's tx plan. Symptoms/Behavior:: This counseling session was provided via telehealth using two-way, real-time interactive telecommunication technology between the patient and the clinician. The interactive telecommunication technology included audio and video. The patient was offered telehealth as an option for care delivery during the COVID-19 pandemic and consented to this option. Patient location: [place]. Provider located at [facility] Eye Contact:: Good Motor Activity:: Appropriate Appearance:: Casual Speech:: Appropriate Mood:: Euthymic Affect:: Congruent Thoughts:: Linear, Logical, No evidence of hallucinations/delusions noted Staff Interventions:: Reviewed homework from last session. Provided psychoeducation on the toolkit for toxic stress. Reviewed healthy coping skills to promote mood and increase self-care. Client Response:: Client responded well to session, open to meeting with therapist. Client stated her grandmother over the weekend and I just can't catch a break. Client stated she was struggling the day client found out, but client's boyfriend helped client cope and challenge perspective. Client reviewed homework from last session and reports she connected a lot with intrusive thinking. Client receptive to learning about the Toolkit for Toxic Stress which was created from research on overcoming adverse experiences. Client learned about the six areas that target the underlying biological issues impacted by toxic stress. These areas were sleep, mental health, healthy relationships, exercise, nutrition, and mindfulness. Client willing to do a self-assessment on each area for homework and begin setting small goals to improve areas she is struggling with. Risks/Concerns:: Client denies any suicidal ideations, plan, or intent as of 03/14/20. Future oriented and more positive today. Progress Toward Goals/Plan:: Client has been attentive and active in group and individual sessions. Client recently experienced the loss of her grandmother and client shared at this point I'm just used to loss. Client reports despite current stressors, client feels more positive and able to cope this week. Client continues to endorse lack of motivation, emotional dysregulation, negative thinking, and difficulty concentrating. Will continue IOP tx to prevent decompen sation, reinforce healthy coping skills, and improve daily functioning. Time Stopped:: 09:54
--- NOTE | 2020-03-16 09:00 | BH.SGPN.GN ---
This psychotherapy group was provided via telehealth using two-way, real-time interactive telecommunication technology between the patients and the provider. The interactive telecommunication technology included audio and video. The patient was offered telemedicine as an option for care delivery during the COVID-19 pandemic and consented to this option. Patient location: [place] Provider located at [facility] Behaviors/Verbalizations/Mental Status: []Client alert and oriented, casually dressed. Eye contact good. Motor activity appropriate. Speech within normal limits. Affect full, mood anxious and euthymic. Thoughts linear, logical, no signs of hallucinations or delusions. Reviewed client?s symptom tracker, no risk or plan for suicide ideation as of 03/16/20. Client Response/Progress/Benefit: []Client responded well to session, engaged and participated throughout discussion. Client shared she attended her grandmother?s yesterday and stated she is ?getting used to grief? after relating it back to all the deaths she has experienced this year. Client stated her medication has been helpful as she feels better mentally, but notices a low appetite. Client shared she is being patient about medication taking it?s full effect. Client reported journaling daily and has seen positive outcomes from journaling. Client benefited from group as she gave positive insight to other group members and progress noted as she could recognize her progress and self-awareness. Client will continue IOP to continue the use of healthy coping skills, increase mood, and improve daily functioning. Narrative Note: []
--- NOTE | 2020-03-16 11:15 | BH.SGPN.GN ---
This psychotherapy group was provided via telehealth using two-way, real-time interactive telecommunication technology between the patients and the provider.?The interactive telecommunication technology included audio and video.? ?The patient was offered telemedicine as an option for care delivery during the COVID-19 pandemic and consented to this option. ?Patient location: [place] ?Provider located at [facility] Behaviors/Verbalizations/Mental Status: []Client alert and oriented, neatly dressed and groomed. Eye contact good. Motor activity appropriate. Speech within normal limits. Affect congruent, mood euthymic. Thoughts linear, logical, no signs of hallucinations or delusions. Client Response/Progress/Benefit: []Client was engaged throughout AEB contribution to discussion. Client reported her comfort zone is isolating in her room and setting goals ?but never following through.? Client reports wanting to work on accomplishing tasks, reducing isolation, and making better decisions. Shared small steps she can take to step out of comfort zone as setting timers when client is in her bedroom with reminders to be productive and social. Appeared to benefit from psychoeducation and working with the group to brainstorm strategies to promote growth and get out of one?s comfort zone. Client will continue IOP tx to reduce mood symptoms and increase emotional regulation skills to improve functioning. Narrative Note: []
--- NOTE | 2020-03-19 15:28 | BH.DS_ITS ---
Discharge Summary - Demographics Date of Admission:: 02/29/20 Discharge Date: 03/19/20 Presenting Problems at Admission:: Client is a 19-year-old female with a history of bipolar II disorder, PTSD, and anxiety. Client participated in [facility] from 10/18/19-12/15/19 and referred herself back to [facility] due to numerous psychosocial stressors worsening client's mental health. Stressors include toxic living environment, father's cancer diagnosis, and quitting her job. At admission, client reported decompensation of depressive symptoms and increased impulse behaviors over the past two months. Client endorsed a depressed mood, crying spells, lack of energy, lack of motivation, intrusive suicidal ideations, worthlessness, and lack of appetite. Client also reported daily anxiety, panic attacks, and inability to concentrate. Client had not been functioning at her baseline as client reported poor self-care and isolative behaviors. Client's symptoms were impacting her relationships and overall functioning. 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 Client self-reports a reduction in symptoms since admission and reports belief she is coping well. Client wishes to continue with outpatient level of care. - Treatment Progress During Treatment & Response: Due to client's early discharge, client did not complete all her treatment goals. However, client reported improvement in mood and ability to manage stressors. Client showed progress in moving out of a toxic environment, reduced impulsive spending, improved mood, challenging distortions, and getting a job. Client was an active group member who offered support and was attentive during sessions. Individually, client was receptive and was mostly consistent with homework. Client continued to struggle with boundary setting and negative self-talk throughout IOP, but client was actively working on these goals. Client will follow up with outpatient providers. Issues Still to be Addressed:: Client can benefit from outpatient counseling to reinforce healthy coping skills, management of bipolar symptoms, and boundary setting. Client can also benefit from ongoing work on challenging distortions and increasing self-love. Client responds well to external accountability and encouragement, so there is a concern that without the structure of IOP client will revert to old patterns of behavior. Discharge Recommendations/Instructions:: Client is encouraged to follow up with her outpatient therapist, Pooja, at [facility]. Client sees Pooja on a weekly basis. Client also will follow up with Darrion Doyle at [facility] for medication management. Client will see Darrion Doyle on 03/21/20. Discharge Handout: Complete Discharge Handout with client on aftercare options and continuity of care.
== END 2020-03-19 08:39 | disposition home or self-care (01) ==
LOC: BHIOP 09:00
PROVIDERS: PCP Nurse Practitioner Family; Referring Provider Psychiatry & Neurology Psychiatry; Visit Provider Psychiatry & Neurology Psychiatry
DX: F31.81 Bipolar II disorder (principal); F41.8 Other specified anxiety disorders; F43.10 Post-traumatic stress disorder, unspecified
CPT/HCPCS: H0035; 90832; 90834; 90853